=== PATIENT | female | born 1955 | race Caucasian/White ===

== ENCOUNTER → 2016-08-18 | Outpatient (CLI) | payer MEDICAID ==
[2016-08-18 12:22] LABS: Anisocytosis Slight; CH 24.4; CHCM 31.7; HCT 38.4 % (34.0-46.0); HGB 11.7 gm/dL (11.4-16.0); Hypochromasia Slight; MCH 23.6 pg (25.0-35.0); MCHC 30.5 g/dL (31.0-37.0); MCV 77.5 fL (80.0-100.0); Mean Platelet Volume 7.3; Microcytosis Slight; RBC 4.96 m/uL (3.80-5.40); RDW 16.3 % (11.5-15.5); WBC 9.3 k/uL (3.8-10.6)
[2016-08-18 12:27] LABS: Appearance,Urine Clear (Clear); Bilirubin,Urine Negative (Negative); Glucose,Urine (UA) 3+ (Negative); Ketones,Urine Negative (Negative); Leukocyte Esterase,Urine Moderate (Negative); Mucus,Urine Rare /hpf; Nitrite,Urine Negative (Negative); PH, Urine 6.5 (5.0-8.0); Particle Count 1249; Protein,Urine Negative (Negative); Specific Gravity,Urine 1.006 (1.001-1.035); Squamous Epithelial Cell,Urine 3 /hpf (0-4); UA Billing (MACRO vs. MICRO) MICRO; Urobilinogen,Urine <2.0 mg/dL (<2.0); WBC,Urine 14 /hpf (0-5)
[2016-08-18 12:34] LABS: ALT 37 U/L (9-52); AST 25 U/L (14-36); Alkaline Phosphatase 87 U/L (38-126); Anion Gap 12 mmol/L; Blood Urea Nitrogen 12 mg/dL (7-17); Calcium 10.4 mg/dL (8.4-10.2); Carbon Dioxide 29 mmol/L (22-30); Chloride 103 mmol/L (98-107); Cholesterol 151 mg/dL (<200); Glucose 59 mg/dL (74-99); HDL Cholesterol 51 mg/dL (40-60); Non-African American GFR(MDRD) >60 (>60 ml/min/1.73 sqM); Sodium 144 mmol/L (137-145); Total Bilirubin 0.4 mg/dL (0.2-1.3); Total Protein 7.2 g/dL (6.3-8.2); Triglycerides 133 mg/dL (<150)
[2016-08-18 19:11] LABS: Hemoglobin A1C 8.5 % (4.2-6.1)
== END | disposition home or self-care (01) ==
LOC: LABT 10:44
PROVIDERS: ATTEND Internal Medicine Interventional Cardiology
DX: Z00.00 Encounter for general adult medical examination without abnormal findings (principal); E11.65 Type 2 diabetes mellitus with hyperglycemia; E03.9 Hypothyroidism, unspecified; E78.2 Mixed hyperlipidemia
CPT/HCPCS: 36415; 80053; 80061; 81001; 82043; 82306; 83036; 84439; 84443; 84481; 85027; 87086

== ENCOUNTER → 2016-08-25 | Outpatient (CLI) | payer MEDICAID ==
[2016-08-25 09:55] LABS: Calcium 10.6 mg/dL (8.4-10.2)
[2016-08-25 10:03] LABS: % Iron Saturation 9.1 % (20-50)
== END | disposition home or self-care (01) ==
LOC: LABWHC1 09:17
PROVIDERS: ATTEND Family Medicine
DX: R89.9 Unspecified abnormal finding in specimens from other organs, systems and tissues (principal)
CPT/HCPCS: 36415; 82310; 82728; 83540; 83550

== ENCOUNTER → 2016-08-31 | Outpatient (CLI) | payer MEDICAID ==
[2016-08-31 16:19] LABS: Anisocytosis Slight; CH 24.6; CHCM 31.1; HCT 39.2 % (34.0-46.0); HGB 12.1 gm/dL (11.4-16.0); Hypochromasia Moderate; MCH 24.6 pg (25.0-35.0); MCHC 30.9 g/dL (31.0-37.0); MCV 79.4 fL (80.0-100.0); Mean Platelet Volume 6.9; Microcytosis Slight; RBC 4.94 m/uL (3.80-5.40); RDW 16.4 % (11.5-15.5); WBC 8.3 k/uL (3.8-10.6)
[2016-08-31 16:27] LABS: Ionized Calcium 5.5 mg/dL (4.5-5.3)
== END | disposition home or self-care (01) ==
LOC: LABWHC1 15:41
PROVIDERS: ATTEND Family Medicine
DX: R79.9 Abnormal finding of blood chemistry, unspecified (principal)
CPT/HCPCS: 36415; 82310; 82330; 83970; 85027

== ENCOUNTER → 2016-11-16 | Outpatient (CLI) | payer MEDICAID ==
--- NOTE | 2016-11-19 10:21 | MM ---
Reason for exam: screening (asymptomatic). Last mammogram was performed 1 year and 1 month ago. History: Patient is postmenopausal and history of other cancer. Physical Findings: A clinical breast exam by your physician is recommended on an annual basis and results should be correlated with mammographic findings. MG Screening Mammo w CAD Bilateral CC and MLO view(s) were taken. Prior study comparison: November 01, 2015, bilateral MG 3d screening mammo w/cad. September 24, 2014, bilateral MG screening mammo w CAD. The breast tissue is heterogeneously dense. This may lower the sensitivity of mammography. Finding: There are vascular calcifications. There is no discrete abnormality. No significant changes in finding since November 01, 2015 and September 24, 2014. ASSESSMENT: Benign, BI-RAD 2 RECOMMENDATION: Routine screening mammogram of both breasts in 1 year.
== END | disposition home or self-care (01) ==
LOC: RADMAMWWP 15:15
PROVIDERS: ATTEND Family Medicine
DX: Z12.31 Encounter for screening mammogram for malignant neoplasm of breast (principal)

== ENCOUNTER → 2016-12-04 | Outpatient (CLI) | payer MEDICAID ==
[2016-12-04 16:01] LABS: Basophils # (A) 0.1 k/uL (0-0.2); Basophils % (A) 1 %; CH 24.7; CHCM 31.2; Eosinophils # (A) 0.2 k/uL (0-0.7); Eosinophils % (A) 2 %; HCT 40.2 % (34.0-46.0); HDW 3.11; HGB 12.4 gm/dL (11.4-16.0); Hypochromasia Moderate; Luc # (Auto) 0.24; Luc % (Auto) 2; Lymphocytes % (A) 18 %; MCH 24.5 pg (25.0-35.0); MCHC 30.8 g/dL (31.0-37.0); MCV 79.5 fL (80.0-100.0); Mean Platelet Volume 6.6; Monocytes # (A) 0.5 k/uL (0-1.0); Monocytes % (A) 4 %; Neutrophils # (A) 8.3 k/uL (1.3-7.7); Neutrophils % (A) 74 %; RBC 5.06 m/uL (3.80-5.40); RDW 15.9 % (11.5-15.5); WBC 11.2 k/uL (3.8-10.6); WBC (Perox) 11.68
[2016-12-04 16:13] LABS: ALT 35 U/L (9-52); AST 23 U/L (14-36); Anion Gap 15 mmol/L; Blood Urea Nitrogen 14 mg/dL (7-17); Calcium 9.9 mg/dL (8.4-10.2); Carbon Dioxide 24 mmol/L (22-30); Chloride 102 mmol/L (98-107); Glucose 132 mg/dL (74-99); Iron 40 ug/dL (37-170); Non-African American GFR(MDRD) >60 (>60 ml/min/1.73 sqM); Potassium 4.8 mmol/L (3.5-5.1); Sodium 141 mmol/L (137-145)
[2016-12-04 16:22] LABS: % Iron Saturation 8.7 % (20-50); Total Iron Binding Capacity 460 ug/dL (265-497)
== END | disposition home or self-care (01) ==
LOC: LABWHC1 15:34
PROVIDERS: ATTEND Internal Medicine Endocrinology, Diabetes & Metabolism
DX: E03.8 Other specified hypothyroidism (principal); I10 Essential (primary) hypertension; R71.8 Other abnormality of red blood cells
CPT/HCPCS: 36415; 80048; 82728; 83540; 83550; 84443; 84450; 84460; 85025

== ENCOUNTER → 2017-04-23 | Outpatient (CLI) | payer MEDICAID ==
[2017-04-23 10:58] LABS: EKG EKG PERFORMED
[2017-04-23 11:20] LABS: Basophils # (A) 0.1 k/uL (0-0.2); Basophils % (A) 1 %; CH 25.5; CHCM 31.1; Eosinophils # (A) 0.2 k/uL (0-0.7); Eosinophils % (A) 2 %; HCT 42.6 % (34.0-46.0); HDW 3.22; HGB 13.5 gm/dL (11.4-16.0); Hypochromasia Moderate; Luc # (Auto) 0.28; Luc % (Auto) 3; Lymphocytes # (A) 2.4 k/uL (1.0-4.8); Lymphocytes % (A) 28 %; MCH 26.1 pg (25.0-35.0); MCHC 31.7 g/dL (31.0-37.0); MCV 82.6 fL (80.0-100.0); Mean Platelet Volume 6.4; Monocytes # (A) 0.5 k/uL (0-1.0); Monocytes % (A) 6 %; Neutrophils # (A) 5.1 k/uL (1.3-7.7); Neutrophils % (A) 60 %; RBC 5.16 m/uL (3.80-5.40); WBC 8.6 k/uL (3.8-10.6); WBC (Perox) 8.66
[2017-04-23 11:37] LABS: Anion Gap 13 mmol/L; Carbon Dioxide 25 mmol/L (22-30); Chloride 101 mmol/L (98-107); Potassium 5.3 mmol/L (3.5-5.1); Sodium 139 mmol/L (137-145)
== END | disposition home or self-care (01) ==
LOC: LABPAT 10:46
PROVIDERS: ATTEND Orthopaedic Surgery
DX: Z01.810 Encounter for preprocedural cardiovascular examination (principal); Z01.812 Encounter for preprocedural laboratory examination; M65.341 Trigger finger, right ring finger
CPT/HCPCS: 36415; 80051; 85025; 93005

== ENCOUNTER 2017-05-02 11:23 | Day surgery (SDC) | payer MEDICAID ==
[2017-04-26 11:21] VITALS: BMI 33.3
--- NOTE | 2017-05-01 14:43 | HP ---
HISTORY AND PHYSICAL DATE OF SERVICE: 05/02/2017 Sabrina Sterling is a 61-year-old patient seen with symptomatic right ring finger trigger finger. We discussed options. She elected to proceed with release A1 devin, consent was obtained. PAST MEDICAL HISTORY: Hyperlipidemia, hypertension, insulin-dependent diabetes, hypothyroidism, asthma. PAST SURGICAL HISTORY: Thyroidectomy, spine surgery, hysterectomy. DAILY MEDICATIONS: Aspirin, atorvastatin, Celexa, Lantus, insulin, levothyroxine, metformin, Lopid, metoprolol, Neurontin, Prilosec. ALLERGIES: CECLOR, SULFA. SOCIAL HISTORY: Patient denies current tobacco use. Physical evaluation right hand, tenderness noted along the A1 devin area. There is clicking, catching with range of motion of the right ring finger. She has good range of motion of the wrist. Distal neurovascular exam is intact. Right hand radiographs were were obtained and revealed no osseous abnormality. IMPRESSION: Symptomatic right ring finger trigger finger. PLAN: Release A1 devin, right ring finger. MMODL / IJN: [id number] /
[~2017-05-02 11:23] MED LIST: DEXAMETHASONE SOD PHOSPHATE 10 MG/ML 1 ML VIAL IV ONE; HYDROmorphone 0.5 MG/0.5 ML SYRINGE IVP PRN; LACTATED RINGERS 1,000 ML IV SCH; ONDANSETRON 4 MG/2 ML VIAL IVP ONE; Pre Op ABX Message 1 EACH MISC MISCELLANE ONE
[2017-05-02 12:28] LABS: Glucose,Whole Blood 112 mg/dL (75-99)
[2017-05-02] MEDS ORDERED: LIDOCAINE 1% 20 ML VIAL (10MG/ML) FOR IV START INTRADERMA ONE (12:32)
[2017-05-02 12:34] VITALS: RESP 16; TEMP 97.3
[2017-05-02] MEDS ORDERED: CLINDAMYCIN 600 MG in DEXTROSE 5% IN WATER 50 ML IVPB STA ×2 (13:01)
[2017-05-02] MEDS ORDERED: PROPOFOL 10 MG/ML 20 ML VIAL IV ONE (13:53)
[2017-05-02] MEDS ORDERED: MIDAZOLAM 2 MG/2 ML VIAL ONE (13:53)
[2017-05-02] MEDS ORDERED: fentaNYL (PF) 50 MCG/ML 2 ML AMP ONE (13:53)
[2017-05-02] MEDS ORDERED: LIDOCAINE 1% INJ 10MG/ML (20 ML MDV) ONE (13:53)
[2017-05-02] MEDS ORDERED: BUPIVACAINE (PF) 0.25% 30 ML VIAL SQ ONE ×2 (13:59→14:04)
--- NOTE | 2017-05-02 14:25 | P.OP ---
Date of Procedure: 05/02/17 Preoperative Diagnosis: Right ring finger trigger finger Postoperative Diagnosis: Same Procedure(s) Performed: Release A1 devin right ring finger Anesthesia: MAC, local Surgeon: Ky Oliver Estimated Blood Loss (ml): 1 Pathology: none sent Condition: stable Disposition: PACU Indications for Procedure: 61-year-old patient seen with symptomatic right ring finger trigger finger. After we discussed options, she elected to proceed with release A1 devin. Consent was obtained. Operative Findings: see description of procedure Description of Procedure: The patient was taken to the operative suite and having received preoperative IV antibiotics. Patient underwent IV sedation by the department of anesthesia. A well-padded tourniquet placed proximal right upper extremity. The right upper extremity was prepped and draped in the normal sterile orthopedic fashion. The proposed incision site was infiltrated with 7 mL quarter percent plain Marcaine. Once sufficient local analgesia was noted the extremity was elevated and tourniquet insufflated to 250. I made a 1 cm incision based over the area of the A1 devin right ring finger. I dissected down to the A1 devin. I identified the A1 devin. I incised the A1 devin. I made sure was completely released with blunt tenotomies. There was good excursion of the tendon with no impingement. There was adequate hemostasis. The incision was approximate nylon suture. Sterile dressings were applied followed by loose web roll and Matty bandage. The tourniquet was released noting immediate capillary refill of all digits. The patient was then transferred to recovery stable condition.
[2017-05-02 14:33] LABS: Glucose,Whole Blood 141 mg/dL (75-99)
[2017-05-02 14:58] VITALS: BP 122/76; PULSE 83
== END 2017-05-02 15:25 | disposition home or self-care (01) ==
LOC: OR 11:23
PROVIDERS: ATTEND Orthopaedic Surgery
DX: M65.341 Trigger finger, right ring finger (principal); E78.5 Hyperlipidemia, unspecified; I10 Essential (primary) hypertension; E11.9 Type 2 diabetes mellitus without complications; E03.9 Hypothyroidism, unspecified; J45.909 Unspecified asthma, uncomplicated; K21.9 Gastro-esophageal reflux disease without esophagitis; Z79.84 Long term (current) use of oral hypoglycemic drugs; Z79.82 Long term (current) use of aspirin; Z79.4 Long term (current) use of insulin; Z79.891 Long term (current) use of opiate analgesic; Z79.899 Other long term (current) drug therapy; Z88.1 Allergy status to other antibiotic agents; Z88.2 Allergy status to sulfonamides
CPT/HCPCS: 84132; 26055; J2250; J1100; J2405; J2001; J3010; J2704

== ENCOUNTER 2017-08-18 17:19 | Emergency (ER) | payer MEDICAID, OTHER ==
[2017-08-18 17:23] VITALS: RESP 18
[2017-08-18] MEDS ORDERED: SODIUM CHLORIDE 0.9% 1,000 ML IV STA (17:39)
[2017-08-18] MEDS ORDERED: RX INFO: IV CONTRAST WAS GIVEN 1 EACH MISC MISCELLANE PRN (17:39)
[2017-08-18] MEDS ORDERED: ONDANSETRON 4 MG/2 ML VIAL IVP STA (17:39)
[2017-08-18] MEDS ORDERED: MORPHINE SULFATE 2 MG/ML SYRINGE IVP ONE (17:41)
[2017-08-18] MEDS ORDERED: MORPHINE SULFATE 4 MG/ML SYRINGE IVP ONE (18:00)
[2017-08-18 18:28] LABS: Basophils # (A) 0.1 k/uL (0-0.2); Basophils % (A) 1 %; Eosinophils # (A) 0.2 k/uL (0-0.7); Eosinophils % (A) 2 %; HCT 42.5 % (34.0-46.0); HGB 13.7 gm/dL (11.4-16.0); Lymphocytes # (A) 1.6 k/uL (1.0-4.8); Lymphocytes % (A) 15 %; MCH 25.9 pg (25.0-35.0); MCHC 32.4 g/dL (31.0-37.0); MCV 80.1 fL (80.0-100.0); Mean Platelet Volume 6.5; Monocytes # (A) 0.5 k/uL (0-1.0); Monocytes % (A) 5 %; Neutrophils # (A) 7.9 k/uL (1.3-7.7); Neutrophils % (A) 76 %; Platelet Count 398 k/uL (150-450); RDW 15.1 % (11.5-15.5); WBC 10.5 k/uL (3.8-10.6)
[2017-08-18 18:32] LABS: Prothrombin Time 10.2 sec (9.0-12.0)
[2017-08-18 18:33] LABS: ALT 30 U/L (9-52); AST 26 U/L (14-36); Albumin 4.3 g/dL (3.5-5.0); Alcohol <10 mg/dL; Alkaline Phosphatase 110 U/L (38-126); Anion Gap 15 mmol/L; Blood Urea Nitrogen 14 mg/dL (7-17); Calcium 10.1 mg/dL (8.4-10.2); Carbon Dioxide 26 mmol/L (22-30); Chloride 100 mmol/L (98-107); Glucose 191 mg/dL (74-99); Potassium 4.5 mmol/L (3.5-5.1); Sodium 141 mmol/L (137-145); Total Bilirubin 0.5 mg/dL (0.2-1.3); Total Protein 7.1 g/dL (6.3-8.2)
[2017-08-18 18:37] LABS: Creatine Kinase 31 U/L (30-135)
[2017-08-18 18:38] LABS: Partial Thromboplastin Time 19.8 sec (22.0-30.0)
[2017-08-18 18:49] LABS: Creatine Kinase MB 0.3 ng/mL (0.0-2.4); Troponin I <0.012 ng/mL (0.000-0.034)
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
--- NOTE | 2017-08-18 19:57 | XR ---
EXAMINATION TYPE: XR chest 1V portable DATE OF EXAM: 08/18/2017 COMPARISON: 11/09/2015 HISTORY: Pain TECHNIQUE: Single frontal view of the chest is obtained. FINDINGS: There is no heart failure nor confluent pneumonic infiltrate. Costophrenic angles are jennifer r. There are chest leads. IMPRESSION: No active cardiopulmonary disease. No adverse change compared to old exam.
--- NOTE | 2017-08-18 19:58 | XR ---
EXAMINATION TYPE: XR pelvis AP view DATE OF EXAM: 08/18/2017 COMPARISON: NONE HISTORY: Pain TECHNIQUE: Single view FINDINGS: There is contrast in the urinary bladder. Pelvic ring appears intact. There is spurring of the acetabula. The level fusion surgery is noted in the lumbar spine. Sacroiliac joints are intact. IMPRESSION: No acute abnormality of the pelvis.
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
[2017-08-18 20:50] VITALS: BP 146/92; PULSE 85; TEMP 99.1
[2017-08-18 21:18] LABS: Amphetamine Screen,Urine Not Detected (NotDetected); Barbiturate Screen,Urine Not Detected (NotDetected); Benzodiazepines Screen,Urine Not Detected (NotDetected); Cocaine Screen,Urine Not Detected (NotDetected); Methadone Screen, Urine Not Detected (NotDetected); Opiate Screen,Urine Detected (NotDetected); Oxycodone Screen, Urine Not Detected (NotDetected); Phencyclidine Screen,Urine Not Detected (NotDetected); Tricyclic Antidepressant,Urine Detected (NotDetected); Urn Cannabinoid Scrn Not Detected (NotDetected)
[2017-08-18 21:23] LABS: Appearance,Urine Cloudy (Clear); Bilirubin,Urine Negative (Negative); Blood,Urine Moderate (Negative); Color,Urine Yellow; Glucose,Urine (UA) 4+ (Negative); Ketones,Urine Negative (Negative); Leukocyte Esterase,Urine Large (Negative); Nitrite,Urine Negative (Negative); PH, Urine 7.5 (5.0-8.0); Protein,Urine Trace (Negative); RBC,Urine >182 /hpf (0-5); Squamous Epithelial Cell,Urine 16 /hpf (0-4); Urobilinogen,Urine <2.0 mg/dL (<2.0); WBC,Urine >182 /hpf (0-5)
[2017-08-18 21:43] LABS: Specific Gravity,Urine >1.050 (1.001-1.035)
== END 2017-08-18 20:57 | disposition home or self-care (01) ==
LOC: EC 17:19
DX: M54.5 Low back pain (principal); M54.6 Pain in thoracic spine; R51 Headache; M54.2 Cervicalgia; R07.9 Chest pain, unspecified; R10.9 Unspecified abdominal pain; E11.9 Type 2 diabetes mellitus without complications; K21.9 Gastro-esophageal reflux disease without esophagitis; E78.5 Hyperlipidemia, unspecified; I10 Essential (primary) hypertension; K58.9 Irritable bowel syndrome, unspecified; I25.10 Atherosclerotic heart disease of native coronary artery without angina pectoris; F32.9 Major depressive disorder, single episode, unspecified; Z79.4 Long term (current) use of insulin; Z79.82 Long term (current) use of aspirin; Z79.899 Other long term (current) drug therapy; Z88.2 Allergy status to sulfonamides; Z88.1 Allergy status to other antibiotic agents; V47.5XXA Car driver injured in collision with fixed or stationary object in traffic accident, initial encounter; Y92.410 Unspecified street and highway as the place of occurrence of the external cause
CPT/HCPCS: 36415; 93005; 86900; 86901; 80053; 82550; 82553; 84484; 85025; 85610; 85730; 86850; 81001; 80306; 80320; 72170; 71045; 72125; 70450; 71260; 74177; 99285; 96374; 96375; 96361 ×3; J2270; J2405; Q9967

== ENCOUNTER → 2017-09-02 | Outpatient (CLI) | payer OTHER ==
--- NOTE | 2017-09-02 12:15 | US ---
EXAMINATION TYPE: US kidneys/renal and bladder DATE OF EXAM: 09/02/2017 COMPARISON: CT 08/18/2017 CLINICAL HISTORY: 61-year-old female R31.21 Microscopic hematuria. Technique: Multiple sonographic images of the kidneys and bladder are obtained. FINDINGS: DIP BRAZIER NOTES: Large body habitus. Right Kidney: 12.1 x 5.0 x 6.0 cm without hydronephrosis. No discrete lesion is identified. The 1.2 cm exophytic cortical lesion posteriorly is not identified by ultrasound. Left Kidney: 11.2 x 5.5 x 5.0 cm with mild pelvicaliectasis. Multiple cysts are demonstrated, largest measuring 2.6 cm in the lower pole and 1.9 cm at the mid to lower pole. An upper pole cyst measures 1.6 cm. No suspicious lesion seen. The lower pole is partially obscured by bowel gas shadowing. No gross abnormality of the bladder. Both ureteral jets are visualized. IMPRESSION: 1. Note limited sensitivity of ultrasound for small renal lesions. The exophytic cortical lesion post erior right kidney seen on 08/18/2017 CT is not seen by ultrasound. A cyst is suspected. 2. Multiple benign cysts in the left kidney, largest measuring 2.6 cm. No suspicious lesion is seen t bri bowel gas shadowing obscures a portion of the lower pole. 3. Mild left-sided pelvicaliectasis probably transient. Follow-up as indicated.
== END | disposition home or self-care (01) ==
LOC: RADUSWWP 10:09
PROVIDERS: ATTEND Family Medicine
DX: N28.1 Cyst of kidney, acquired (principal); N28.89 Other specified disorders of kidney and ureter
CPT/HCPCS: 76770

== ENCOUNTER → 2017-10-31 | Outpatient (CLI) | payer OTHER | END | disposition home or self-care (01) | LOC: LABWHC1 15:52 | PROVIDERS: ATTEND Physical Medicine & Rehabilitation | DX: M51.17 Intervertebral disc disorders with radiculopathy, lumbosacral region (principal); M50.120 Mid-cervical disc disorder, unspecified level; M47.812 Spondylosis without myelopathy or radiculopathy, cervical region; M47.817 Spondylosis without myelopathy or radiculopathy, lumbosacral region; S13.4XXA Sprain of ligaments of cervical spine, initial encounter; M25.78 Osteophyte, vertebrae; M70.61 Trochanteric bursitis, right hip; R20.2 Paresthesia of skin; G89.11 Acute pain due to trauma; M54.5 Low back pain; Z98.1 Arthrodesis status | CPT/HCPCS: 36415; 82565 ==

== ENCOUNTER → 2017-11-01 | Outpatient (CLI) | payer OTHER ==
--- NOTE | 2017-11-01 10:48 | MR ---
EXAMINATION TYPE: MR cspine/lspine wo/w con DATE OF EXAM: 11/01/2017 COMPARISON: NONE HISTORY: Neck pain low back pain CONTRAST: Performed utilizing 8.5 mL intravenous Gadavist gadolinium contrast. TECHNIQUE: Multiplanar multiecho imaging on a 3.0 Sandra magnet is performed through the cervical spin e. FINDINGS: The craniovertebral junction is normal. Vertebral body alignment is normal. Postsurgical anterior fusion is evident C5-C6 and C7. C7-T1: Mild disc bulge is present with anterior thecal sac contact. No AP spinal canal stenosis is p resent. Neural foramen are patent. C6-7: Minimal residual endplate spurring has mild anterior thecal sac compression. No AP spinal canal stenosis is present. No cord contact is evident. Neural foramen are patent.. C5-6: There is a small central protrusion with mild anterior thecal sac compression. No AP spinal can al stenosis or cord contact is evident. Right foramen has mild narrowing.. C4-5: There is a large right paracentral disc bulge with moderate anterior thecal sac compression. Th is has cord contact. Mild cord deformity may be present. Borderline spinal canal stenosis at 0.8 cm i s present. Right foramen is moderately narrowed due to uncovertebral joint hypertrophy. Milder forami nal narrowing is present on the left.. C3-4: Broad mild right paracentral endplate changes are present. This may have some associated disc m aterial with mild anterior thecal sac compression. No cord contact is evident. No spinal canal stenos is present. Moderate right foraminal narrowing is present.. C2-3: There is a tiny central protrusion with mild to moderate anterior thecal sac compression. This comes in close approximation with the spinal cord. Cord deformity is not identified. Neural foramen a re patent.. No suspicious enhancement is evident. IMPRESSIONS: 1. Moderately large right paracentral disc herniation C4-5 with moderate anterior thecal sac compress ion. Cord contact and mild cord deformity may be present. 2. Postsurgical changes with cervical fusion C5 5 through C7. 3. Foraminal narrowing due to uncovertebral joint hypertrophy discussed above. 4. Tiny central protrusion C2-3 and broad mild right paracentral endplate changes with associated di sc material at C3-4 with mild anterior thecal sac compression. EXAMINATION TYPE: MR rangeline/andi wo/w con DATE OF EXAM: 11/01/2017 COMPARISON: NONE HISTORY: Low back pain history of surgery CONTRAST: 8.5 mL intravenous Gadavist. TECHNIQUE: Multiplanar, multisequence images of the lumbar spine were acquired. FINDINGS: Cord appears to terminate at approximately L2. The exact level is somewhat difficult to vi sualize due to the beam hardening artifact present from pedicle screws present L2-S1. Vertebral body alignment appears appropriate. Disc heights appear preserved. Disc desiccation is present. L5-S1: No significant disc bulge or disc herniation. No spinal canal stenosis. No foraminal stenosi s. Facet hypertrophy is present. Susceptibility artifact has mild limitation at this level.. L4-L5: This level is extremely limited due to susceptibility artifact with limited visualization on t he T2-weighted sequences. T1-weighted sequences are nondiagnostic. No obvious abnormality is evident. L3-L4: This level is extremely limited due to susceptibility artifact and is nondiagnostic on T1-weig hted sequences. Suspected facet hypertrophy is present with posterior lateral thecal sac compression on the T2-weighted sequences. Obvious stenosis is not evident. No obvious abnormality is identified. L2-L3: There is moderate limited visualization due to susceptibility artifact. No obvious stenosis is evident. No significant disc bulge is evident. Neural foramen are somewhat limited but appear patent . L1-L2: This level is somewhat limited due to susceptibility artifact. No significant disc bulge or di sc herniation. No spinal canal stenosis. No foraminal stenosis. T12-L1: No significant disc bulge or disc herniation. No spinal canal stenosis. No foraminal stenos is. Facets appear unremarkable.. No abnormal enhancement is evident. T1 postcontrast images are very limited due to susceptibility art ifact. IMPRESSION: 1. Very limited examination due to susceptibility artifact from pedicle screws and prior surgery. 2. To the degree of visualization, no obvious abnormality is evident. 3. Some facet degenerative changes are noted.
== END ==
LOC: RADMRIMAIN 08:32
PROVIDERS: ATTEND Physical Medicine & Rehabilitation
DX: M50.01 Cervical disc disorder with myelopathy, high cervical region (principal); Z98.1 Arthrodesis status; M48.02 Spinal stenosis, cervical region
CPT/HCPCS: 72156; 72158; A9581

== ENCOUNTER 2017-11-12 08:58 | Day surgery (SDC) | payer OTHER ==
[2017-11-08 15:46] VITALS: BMI 33.3
[~2017-11-12 08:58] MED LIST changes: -DEXAMETHASONE SOD PHOSPHATE 10 MG/ML 1 ML VIAL IV ONE; -HYDROmorphone 0.5 MG/0.5 ML SYRINGE IVP PRN; +LIDOCAINE 1% 20 ML VIAL (10MG/ML) FOR IV START INTRADERMA PRN; -ONDANSETRON 4 MG/2 ML VIAL IVP ONE; -Pre Op ABX Message 1 EACH MISC MISCELLANE ONE
[2017-11-12] MEDS: CYCLOPENTOLATE 1% OPHTH SOLN 2 ML BTL OP ONE ×3 (10:05→10:23)
[2017-11-12] MEDS: FLURBIPROFEN 0.03% OPHTH DROPS 2.5 ML BTL OP ONE ×3 (10:08→10:26)
[2017-11-12 10:11] VITALS: RESP 18; TEMP 97.2
[2017-11-12] MEDS: PHENYLEPHRINE 10% OPHTH DROPS 5 ML BTL OP ONE ×3 (10:11→10:29)
[2017-11-12 10:36] LABS: Glucose,Whole Blood 149 mg/dL (75-99)
[2017-11-12] MEDS ORDERED: BALANCED SALT IRRIG SOLN COMB2 15 ML IRRIG.SOLN IRRIGATION ONE (10:50)
[2017-11-12] MEDS ORDERED: HYALURONATE SODIUM INTRAOCULAR 1 EACH SYRINGE (10MG/ML) INTRAOCULA ONE (10:51)
[2017-11-12] MEDS ORDERED: PROPOFOL 10 MG/ML 20 ML VIAL IV ONE (10:53)
[2017-11-12] MEDS ORDERED: LIDOCAINE 1% INJ 10MG/ML (20 ML MDV) ONE (10:53)
[2017-11-12] MEDS ORDERED: EPINEPHrine (PF) 0.5 ML in BALANCED SALT IRRIG SOLN COMB2 500 ML IRRIGATION ONE (10:56)
--- NOTE | 2017-11-12 11:13 | P.OP ---
Date of Procedure: 11/12/17 Procedure(s) Performed: PREOPERATIVE DIAGNOSIS: Cataract, right eye. POSTOPERATIVE DIAGNOSIS: Cataract, right eye. OPERATION: Phacoemulsification cataract, right eye. DESCRIPTION OF PROCEDURE: The patient was taken to the preoperative holding area. Intravenous Propofol was given so as to bring about adequate sedation. The following mixture was given for local anesthesia: 5 mL of 2% lidocaine, 5 mL of 0.75% Marcaine, and 1 mL of Wydase. Approximately 4 mL was injected in the retrobulbar space of the surgical eye. Additional 1 mL was then directed to the temporal area of the surgical eye. This was performed to allow adequate neurological block of the facial muscles. The patient was revived and then taken into the operative room. The patient was prepped and draped in the usual sterile manner for the operative eye. A lid speculum was put into position. The conjunctiva was resected back from the limbus in the 12 o'clock position. Bleeding was controlled with electrocautery. A #69 blade was then used and a half-thickness scleral incision approximately 1-mm posterior to the limbus was made on bare sclera. This was shelved in the clear cornea using a crescent knife. Next a 15-degree blade was used to make a stab incision at the 3 o' clock position at the corneolimbal interface. Keratome blade was then used and the superior wound was extended into the anterior chamber. Viscoelastic was injected into the anterior chamber and to maintain its form. Next, a cystotome was used and a continuous anterior capsulotomy was made without difficulty. Hydrodissection using a blunt cannula and BSS was performed. Phaco probe was then employed and a groove extending from 12 to 6 o'clock in the lens was created. A Martinez wand was used through the stab incision so as to perform a divide and conquer technique. Next an irrigation aspiration probe was utilized and any residual cortex was removed from the eye. Again, viscoelastic was injected into the anterior chamber. An Colton posterior chamber lens implant was placed in the cartridge and injected into the anterior chamber without difficulty. The [employer] System[employer] hook was utilized to spin the lens into position and this was again performed without any difficulty. The irrigation and aspiration probe was again employed and any residual viscoelastic was removed from the eye. Then BSS was injected into the limbal stab incision and the anterior chamber re-inflated. The conjunctiva was reapproximated using electrocautery. One drop of 0.25% Timoptic was placed over the corneal along with TobraDex ophthalmic ointment. Two sterile patches and a Bustos eye shield were taped into position. The patient was transported to the recovery room in stable condition. Pathology: none sent Condition: stable Disposition: same day
[2017-11-12 11:24] LABS: Glucose,Whole Blood 116 mg/dL (75-99)
[2017-11-12 11:41] VITALS: BP 142/84; PULSE 68
[2017-11-12] MEDS ORDERED: TIMOLOL 0.5% OPHTH DROPS 5 ML BTL OP ONE (23:00)
[2017-11-12] MEDS ORDERED: GENTAMICIN/PREDNISOL AC OPHTH OINT 3.5GM OPHTHALMIC ONE (23:00)
[2017-11-12] MEDS ORDERED: BUPIVACAINE (PF) 0.75% 5 ML, HYALURONIDASE, HUMAN RECOMB 150 UNIT, LIDOCAINE 2% (PF) 10... MISCELLANE ONE ×3 (23:00)
== END 2017-11-12 11:58 | disposition home or self-care (01) ==
LOC: OR 08:58
PROVIDERS: ATTEND Ophthalmology
DX: H25.11 Age-related nuclear cataract, right eye (principal); E11.9 Type 2 diabetes mellitus without complications; I11.9 Hypertensive heart disease without heart failure; I25.2 Old myocardial infarction; E78.5 Hyperlipidemia, unspecified; I25.10 Atherosclerotic heart disease of native coronary artery without angina pectoris; J45.909 Unspecified asthma, uncomplicated; E89.0 Postprocedural hypothyroidism; K21.9 Gastro-esophageal reflux disease without esophagitis; Z95.5 Presence of coronary angioplasty implant and graft; Z88.1 Allergy status to other antibiotic agents; Z88.2 Allergy status to sulfonamides; Z79.82 Long term (current) use of aspirin; Z79.890 Hormone replacement therapy; Z79.4 Long term (current) use of insulin; Z79.891 Long term (current) use of opiate analgesic; Z79.899 Other long term (current) drug therapy
CPT/HCPCS: 66984; V2632; J3470; J2001 ×2; J0171; J2704

== ENCOUNTER → 2017-11-20 | Outpatient (CLI) | payer OTHER ==
[2017-11-20 13:39] LABS: HCT 38.6 % (34.0-46.0); HGB 12.9 gm/dL (11.4-16.0); MCH 26.4 pg (25.0-35.0); MCHC 33.3 g/dL (31.0-37.0); MCV 79.1 fL (80.0-100.0); Mean Platelet Volume 6.3; Platelet Count 377 k/uL (150-450); Poikilocytosis Slight; RBC 4.88 m/uL (3.80-5.40); RDW 15.1 % (11.5-15.5); WBC 9.3 k/uL (3.8-10.6)
[2017-11-20 13:40] LABS: Appearance,Urine Cloudy (Clear); Bilirubin,Urine Negative (Negative); Blood,Urine Negative (Negative); Color,Urine Yellow; Glucose,Urine (UA) Negative (Negative); Ketones,Urine Negative (Negative); Leukocyte Esterase,Urine Large (Negative); Mucus,Urine Rare /hpf; Nitrite,Urine Negative (Negative); PH, Urine 6.5 (5.0-8.0); Protein,Urine 1+ (Negative); RBC,Urine 1 /hpf (0-5); Specific Gravity,Urine 1.023 (1.001-1.035); Squamous Epithelial Cell,Urine 8 /hpf (0-4); WBC,Urine 5 /hpf (0-5)
[2017-11-20 13:51] LABS: ALT 22 U/L (9-52); AST 22 U/L (14-36); Albumin 4.2 g/dL (3.5-5.0); Alkaline Phosphatase 114 U/L (38-126); Anion Gap 15 mmol/L; Blood Urea Nitrogen 14 mg/dL (7-17); Calcium 9.3 mg/dL (8.4-10.2); Carbon Dioxide 26 mmol/L (22-30); Chloride 102 mmol/L (98-107); Cholesterol 156 mg/dL (<200); Glucose 119 mg/dL (74-99); HDL Cholesterol 40 mg/dL (40-60); LDL Cholesterol,Calculated 82 mg/dL (0-99); Potassium 4.2 mmol/L (3.5-5.1); Sodium 143 mmol/L (137-145); Total Bilirubin 0.4 mg/dL (0.2-1.3); Total Protein 6.6 g/dL (6.3-8.2); Triglycerides 169 mg/dL (<150)
[2017-11-20 14:07] LABS: T4, Free (Free Thyroxine) 1.43 ng/dL (0.78-2.19)
[2017-11-20 19:28] LABS: Vitamin D 25 Hydroxy 44.2 ng/mL (30.0-100.0)
[2017-11-20 21:20] LABS: Hepatitis C IgG Antibody Non-Reactive (Non-Reactive)
[2017-11-21 03:12] LABS: Hemoglobin A1C 9.3 % (4.0-6.0)
== END | disposition home or self-care (01) ==
LOC: LABWHC1 13:03
PROVIDERS: ATTEND Internal Medicine Endocrinology, Diabetes & Metabolism
DX: Z00.00 Encounter for general adult medical examination without abnormal findings (principal); E11.65 Type 2 diabetes mellitus with hyperglycemia; E03.8 Other specified hypothyroidism; Z13.9 Encounter for screening, unspecified
CPT/HCPCS: 36415; 80053; 80061; 81001; 82043; 82306; 82570; 83036; 84439; 84443; 85027; 86803

== ENCOUNTER → 2017-11-22 | Outpatient (CLI) | payer OTHER ==
--- NOTE | 2017-11-25 09:52 | MM ---
Reason for exam: screening (asymptomatic). Last mammogram was performed 1 year ago. History: Patient is postmenopausal and history of other cancer. Physical Findings: A clinical breast exam by your physician is recommended on an annual basis and results should be correlated with mammographic findings. MG 3D Screening Mammo W/Cad Bilateral CC and MLO view(s) were taken. Prior study comparison: November 16, 2016, bilateral MG screening mammo w CAD. November 01, 2015, bilateral MG 3d screening mammo w/cad. There are scattered fibroglandular densities. No significant changes when compared with prior studies. ASSESSMENT: Benign, BI-RAD 2 RECOMMENDATION: Routine screening mammogram of both breasts in 1 year.
== END | disposition home or self-care (01) ==
LOC: RADMAMWWP 12:47
PROVIDERS: ATTEND Family Medicine
DX: Z12.31 Encounter for screening mammogram for malignant neoplasm of breast (principal)
CPT/HCPCS: 77063; 77067

== ENCOUNTER → 2019-04-07 | Outpatient (CLI) | payer OTHER ==
--- NOTE | 2019-04-07 13:10 | US ---
EXAMINATION TYPE: US abdomen complete DATE OF EXAM: 04/07/2019 COMPARISON: CT abdomen pelvis dated 08/18/2017 CLINICAL HISTORY: R11.0 Nausea. Nausea, no surgeries, NPO EXAM MEASUREMENTS: Liver Length: 22.3 cm Gallbladder Wall: 0.2 cm CBD: 0.5 cm Spleen: 14.2 cm Right Kidney: 12.5 x 6.4 x 4.4 cm Left Kidney: 11.7 x 6.1 x 5.3 cm Limited visualization due to patient body habitus and overlying bowel Pancreas: Appears echogenic in appearance, limited visualization. Tail not visualized due to overly ing bowel gas. Liver: Increased attenuation, decreased visualization of vessels suggestive of fatty infiltrate. En larged in size. Coarse. Heterogenous. Gallbladder: wnl Evidence for sonographic Quintana's sign: neg CBD: wnl Spleen: Enlarged in size Right Kidney: Multiple cystic appearing lesions seen. Largest on lower lateral = 1.6 x 1.4 x 1.4 cm Left Kidney: Multiple cystic appearing lesions seen. Largest lower mid pole with possible septation = 3.2 x 4.0 x 3.1 cm Upper IVC: wnl Abd Aorta: Distal portions obscured by overlying bowel gas The intrahepatic portion of the IVC and proximal abdominal aorta are within normal limits. There is no evidence of cholelithiasis. Common bile duct is unremarkable. The visualized portions of the yeung creas are homogenous. The spleen is unremarkable. Kidneys are symmetric and free of hydronephrosis. IMPRESSION: 1. Splenomegaly. 2. Multiple benign-appearing bilateral renal cysts. 3. No sonographic evidence of cholelithiasis nor acute cholecystitis. The previously seen small ester liths on the prior CT of 08/18/2018 are not appreciated sonographically.
== END | disposition home or self-care (01) ==
LOC: RADUSWWP 11:48
PROVIDERS: ATTEND Family Medicine
DX: N28.1 Cyst of kidney, acquired (principal); R16.1 Splenomegaly, not elsewhere classified
CPT/HCPCS: 76700

== ENCOUNTER 2020-12-13 06:49 | Day surgery (SDC) | payer OTHER ==
[2020-12-08 11:18] VITALS: BMI 33.3
[~2020-12-13 06:49] MED LIST changes: +LIDOCAINE 1% (10MG/ML) FOR IV START INTRADERMA PRN; -LIDOCAINE 1% 20 ML VIAL (10MG/ML) FOR IV START INTRADERMA PRN
[2020-12-13 07:27] VITALS: TEMP 97
[2020-12-13 07:29] LABS: Glucose,Whole Blood 206 mg/dL (75-99)
[2020-12-13] MEDS ORDERED: LACTATED RINGERS 1,000 ML IV ONE (07:30)
[2020-12-13] MEDS ORDERED: LIDOCAINE 1% INJ 10MG/ML (20 ML MDV) ONE (08:01)
[2020-12-13] MEDS ORDERED: PROPOFOL 10 MG/ML 20 ML VIAL IV ONE (08:01)
--- NOTE | 2020-12-13 08:38 | P.PCN ---
Date of Procedure: 12/13/20 Description of Procedure: BRIEF HISTORY: Patient is a 65-year-old female presenting for outpatient colonoscopy or evaluation of positive Cologuard. Last colonoscopy 15 years ago. No change in bowel habits or abdominal pain reported. PROCEDURE PERFORMED: Colonoscopy with polypectomy and Endo Clip placement. PREOPERATIVE DIAGNOSIS: Positive Cologuard, last colonoscopy 15 years ago. ESTIMATED BLOOD LOSS: Minimal. IV sedation per Anesthesia. PROCEDURE: After informed consent was obtained, the patient, was brought into the endoscopy unit. IV sedation was administered by Anesthesia under continuous monitoring. Digital rectal examination was normal. Initially the Olympus CF-190 flexible video colonoscope was then inserted in the rectum, gradually advanced into the cecum without any difficulty. Careful examination was performed as the scope was gradually being withdrawn. Ileocecal valve and the appendiceal orifice were visualized and appeared normal. Prep was fair with liquid and solid stool throughout the colon. Mucosa of the cecum, ascending colon, transverse colon, descending colon, sigmoid colon, and rectum which was able to be visualized appeared normal. A sessile 4 mm hepatic flexure polyp was removed with cold snare polypectomy. A pedunculated 10 mm rectal polyp was removed with hot snare polypectomy with Endo Clip placement for hemostasis. Retroflexion was performed in the rectum and no lesions were seen. The patient tolerated the procedure wel l. IMPRESSION: Pedunculated rectal polyp removed with hot snare polypectomy with Endo Clip placement for hemostasis. Sessile hepatic flexure polyp removed with cold snare polypectomy. Fair prep. RECOMMENDATIONS: Findings of this examination were discussed with the patient and her family. Okay to resume diet. Okay to resume medication. Await pathology from polypectomies. Recommend repeat colonoscopy in 1 year given inadequate prep.
[2020-12-13 08:40] VITALS: RESP 16
[2020-12-13 08:46] LABS: Glucose,Whole Blood 156 mg/dL (75-99)
[2020-12-13 08:55] VITALS: BP 147/83; PULSE 60
== END 2020-12-13 09:11 | disposition home or self-care (01) ==
LOC: ORWHC2ENDO 06:49
PROVIDERS: ATTEND Internal Medicine
DX: K62.1 Rectal polyp (principal); I25.2 Old myocardial infarction; I10 Essential (primary) hypertension; F32.9 Major depressive disorder, single episode, unspecified; E78.5 Hyperlipidemia, unspecified; J45.909 Unspecified asthma, uncomplicated; E11.9 Type 2 diabetes mellitus without complications; Z85.850 Personal history of malignant neoplasm of thyroid; Z88.2 Allergy status to sulfonamides; K21.9 Gastro-esophageal reflux disease without esophagitis; Z79.899 Other long term (current) drug therapy; Z88.1 Allergy status to other antibiotic agents
CPT/HCPCS: 88305; 45385; J2001; J2704; 45382

== ENCOUNTER 2021-11-09 07:46 | Day surgery (SDC) | payer MEDICARE ==
[2021-11-09] MEDS ORDERED: diazePAM 5 MG TAB PO PRN (08:33)
== END 2021-11-09 09:05 | disposition home or self-care (01) ==
LOC: RADPROMAIN 07:46
PROVIDERS: ATTEND Nurse Practitioner Family
DX: M54.2 Cervicalgia (principal); Z53.9 Procedure and treatment not carried out, unspecified reason

== ENCOUNTER → 2023-03-28 | Outpatient (CLI) | payer MEDICARE ==
--- NOTE | 2023-03-28 16:00 | P.PAINPG ---
PQRS Measure Charge Sheet Comment: HISTORY OF PRESENT ILLNESS: 67 yr old female w at side as a referral from Dr Matta presents today w severe and chronic Head and Neck pain x 2 yr (since having Covid) secondary to occipital neuralgia, cervicogenic headache for evaluation. Pt states pain level is provoked at 9 /10 in intensity, constant, localized in the upper cervical spine, sharp in character w shooting pain towards the top of the scalp. Pain is provoked by bright light. Pain is alleviated by PT years ago, medications (Palatine, Ibu), ice, repositioning and rest. Oswestry axial pain score at 23. PMH: OA, Asthma, DM II, GERD, Hyperlipidemia, HTN, IBS, CAD, MDD PSH: Lumbar Fusion, Cervical Fusion, Heart Catheterization With Stent, Hysterectomy, Vaginal Wall Repair, Thyroidectomy SH: Negative x3 FH: Non contributory All: See list Meds: See list REVIEW OF ORGAN SYSTEMS: CONSTITUTIONAL: No fevers or chills. No recent weight loss. NEUROLOGICAL: + numbness and tingling along the distal extremities. No seizure disorders or headaches. MUSCULOSKELETAL: + pain PSYCHIATRIC: Denies current depression or suicidal thoughts. Physical Examinations : Constitutional : Cooperative , not in acute distress . Neurologic : Cranial nerve II to XII intact. No focal neurological deficits. Psychiatric : alert & oriented x 3. Matching mood & appropriate affect. Judgment & insight intact. Musculoskeletal : Cervical Spine +BL SUE TTP Motor strength in the deltoid and biceps: Normal right side. Normal Left side Motor strength biceps and the wrist extensors: Normal right side . Normal left side Motor strength in the triceps muscle: Normal right side. Normal left side Deep tendon reflexes: Normal at the biceps. Normal at Brachioradialis. Normal at triceps Vertebral body tenderness to deep palpation over Cervical facet loading test: positive bilaterally Spurling test: positive bilaterally Neck distraction test: positive bilaterally Roslyn sign: positive bilaterally Lumbar spine Motor strength lower extremities ,thigh and legs 5/5 Right side , 5/5 Left side Deep tendon reflexes : Normal Knee Jerk. Normal Ankle Jerk Vertebral body tenderness over Wood Test positive Lumbar facet Loading Test: positive Right / positive Left Range of motion of the lumbar spine Flexion 30 degrees, extension 10 degrees Straight Leg Raise test: Left/ Right positive at degree Juan test: positive right / positive left. Severe tenderness over the Sacroiliac joint on the Right / Left sides Gaenslen test: positive bilaterally Seated flexion test: positive bilaterally. Sacral spine : Severe tenderness over the Sacroiliac joint: right side / left side Range of motion: Flexion of the lumbar spine <60 degrees Range of motion: Extension of the lumbar spine <20 degrees Gaenslen's Test positive Ino's Test positive Juan test: positive right side / left side Thigh Thrust Test Sacral Thrust Test Imaging: MRI non contrast of the brain from 01/05/23 reviewed Assessment/ Plan : Occipital Neuralgia, Cervicogenic CRAFT Recommendation of BL SUE injections. May need a series of injections for optimal pain relief. Risks, benefits of procedure discussed and patient verbalized understanding. Admits to aspirin or anti- coagulant use or medical history of diabetes. Protocol for discontinuation/ continuation of medications kandy procedure discussed. Minimal anesthesia provided, if clinically indicated, consisting of Versed and Fentanyl. All questions answered. I have spent greater than 30 minutes on patient care today. Dr Liang was available by phone for the evaluation of this patient. The time was used to review the medical records including relevant urine studies and Prescription history (MAPs), review of the available imaging, evaluation and examination of the patient, coordination of care with the medical staff and if applicable referring physicians, as well as creation of the medical record PQRS Narrative: Smoking Status Never smoker Home Medications: Ambulatory Orders Albuterol Sulfate [Ventolin HFA] 2 puff INHALATION BID PRN 03/13/14 Aspirin 81 mg PO DAILY 03/13/14 Atorvastatin [Lipitor] 80 mg PO HS 03/13/14 Gabapentin [Neurontin] 300 mg PO TID 03/13/14 INSULIN ASPART (NovoLOG) [NovoLOG] 48 units SQ AC-TID 03/13/14 Insulin Glargine [Lantus] 45 unit SQ BID 03/13/14 Omeprazole [PriLOSEC] 20 mg PO BID 03/13/14 gemfibroziL [Lopid] 600 mg PO BID 03/13/14 metFORMIN HCL [Glucophage] 1,700 mg PO BID 03/13/14 Cholecalciferol [Vitamin D3] 2,000 unit PO DAILY 11/06/15 Ibuprofen [Motrin] 800 mg PO BID PRN 11/06/15 Levothyroxine Sodium [Synthroid] 175 mcg PO DAILY 11/06/15 rOPINIRole HCL [Requip] 1 mg PO HS 11/06/15 Metoprolol Succinate [Metoprolol Succinate ER] 25 mg PO HS 04/26/17 Sertraline [Zoloft] 100 mg PO HS 08/18/17 L.acidoph,Paracasei, B.lactis [Probiotic] 1 each PO DAILY 11/08/17 Multivitamins, Thera [Multivitamin (formulary)] 1 tab PO DAILY 11/08/17 Dapagliflozin Propanediol [Farxiga] 10 mg PO DAILY 10/25/21 HYDROcodone/APAP 10-325MG [Palatine 10-325] 1 tab PO Q6HR PRN 10/25/21 Zolpidem Tartrate [Ambien] 5 mg PO HS PRN 10/25/21 Controlled Substance Measures - Controlled Substance Measures Is patient prescribed a controlled substance at discharge?: No
[2023-03-28 16:05] VITALS: BP 135/79; PULSE 66; RESP 16; TEMP 98.1
== END ==
LOC: PNWHC3 10:42
PROVIDERS: ATTEND Specialist
DX: M54.81 Occipital neuralgia (principal); G44.86 Cervicogenic headache; M19.90 Unspecified osteoarthritis, unspecified site; J45.909 Unspecified asthma, uncomplicated; E11.9 Type 2 diabetes mellitus without complications; K21.9 Gastro-esophageal reflux disease without esophagitis; E78.5 Hyperlipidemia, unspecified; I10 Essential (primary) hypertension; I25.10 Atherosclerotic heart disease of native coronary artery without angina pectoris; F32.9 Major depressive disorder, single episode, unspecified; K58.9 Irritable bowel syndrome, unspecified; Z88.8 Allergy status to other drugs, medicaments and biological substances; Z88.2 Allergy status to sulfonamides; Z79.84 Long term (current) use of oral hypoglycemic drugs; Z79.899 Other long term (current) drug therapy; Z79.4 Long term (current) use of insulin; Z79.51 Long term (current) use of inhaled steroids; Z79.82 Long term (current) use of aspirin
CPT/HCPCS: 99211

== ENCOUNTER → 2023-05-09 | Outpatient (CLI) | payer MEDICARE ==
[2023-05-09 11:32] VITALS: BP 138/85; PULSE 68; RESP 16; TEMP 98.4
--- NOTE | 2023-05-09 13:51 | P.PAINPG ---
PQRS Measure Charge Sheet Comment: HISTORY OF PRESENT ILLNESS: A 67 yr old female w at side presents today w severe and chronic Head and Neck pain x 2 yr (since having Covid) secondary to occipital neuralgia, cervicogenic headache for evaluation s/p BL SUE injection. Pt states she experienced 0 % pain relief x 4 wks s/p procedure. Pt states pain level is provoked at 9 /10 in intensity, constant, localized in the upper cervical spine, sharp in character w shooting pain towards the top of the scalp. Pain is provoked by bright light. Pain is alleviated by PT years ago, medications, ice, repositioning and rest. Oswestry axial pain score at 22. Interventional procedures include BL SUE injections x1 Medications include Moira, Ibu REVIEW OF ORGAN SYSTEMS: CONSTITUTIONAL: No fevers or chills. No recent weight loss. NEUROLOGICAL: + numbness and tingling along the distal extremities. No seizure disorders or headaches. MUSCULOSKELETAL: + pain PSYCHIATRIC: Denies current depression or suicidal thoughts. Physical Examinations : Constitutional : Cooperative , not in acute distress . Neurologic : Cranial nerve II to XII intact. No focal neurological deficits. Psychiatric : alert & oriented x 3. Matching mood & appropriate affect. Judgment & insight intact. Musculoskeletal : Cervical Spine Motor strength in the deltoid and biceps: Normal right side. Normal Left side Motor strength biceps and the wrist extensors: Normal right side . Normal left side Motor strength in the triceps muscle: Normal right side. Normal left side Deep tendon reflexes: Normal at the biceps. Normal at Brachioradialis. Normal at triceps Vertebral body tenderness to deep palpation over Cervical facet loading test: positive bilaterally over BL C2-C3, c3-C4 Spurling test: positive bilaterally Neck distraction test: positive bilaterally Roslyn sign: positive bilaterally Lumbar spine Motor strength lower extremities ,thigh and legs 5/5 Right side , 5/5 Left side Deep tendon reflexes : Normal Knee Jerk. Normal Ankle Jerk Vertebral body tenderness over Wood Test positive Lumbar facet Loading Test: positive Right / positive Left Range of motion of the lumbar spine Flexion 30 degrees, extension 10 degrees Straight Leg Raise test: Left/ Right positive at degree Juan test: positive right / positive left. Severe tenderness over the Sacroiliac joint on the Right / Left sides Gaenslen test: positive bilaterally Seated flexion test: positive bilatera lly. Sacral spine : Severe tenderness over the Sacroiliac joint: right side / left side Range of motion: Flexion of the lumbar spine <60 degrees Range of motion: Extension of the lumbar spine <20 degrees Gaenslen's Test positive Ino's Test positive Juan test: positive right side / left side Thigh Thrust Test Sacral Thrust Test Imaging: MRI non contrast of the cervical spine from 01/05/23 reviewed Assessment/ Plan : Occipital Neuralgia, Cervicogenic CRAFT Recommendation of BL MBB C2-C3, C3-C4 #1. May need a series of injections, up until RFA, for optimal pain relief. Risks, benefits of procedure discussed and patient verbalized understanding. Admits to aspirin or anti- coagulant use or medical history of diabetes. Protocol for discontinuation/ continuation of medications kandy procedure discussed. Minimal anesthesia provided, if clinically indicated, consisting of Versed and Fentanyl. All questions answered. I have spent greater than 30 minutes on patient care today. Dr Liang was available by phone for the evaluation of this patient. The time was used to review the medical records including relevant urine studies and Prescription history (MAPs), review of the available imaging, evaluation and examination of the patient, coordination of care with the medical staff and if applicable referring physicians, as well as creation of the medical record PQRS Narrative: Smoking Status Never smoker Hx Alcohol Use (MH) No Home Medications: Ambulatory Orders Albuterol Sulfate [Ventolin HFA] 2 puff INHALATION BID PRN 03/13/14 Aspirin 81 mg PO DAILY 03/13/14 Atorvastatin [Lipitor] 80 mg PO HS 03/13/14 Gabapentin [Neurontin] 300 mg PO TID 03/13/14 INSULIN ASPART (NovoLOG) [NovoLOG] 48 units SQ AC-TID 03/13/14 Insulin Glargine [Lantus] 45 unit SQ BID 03/13/14 Omeprazole [PriLOSEC] 20 mg PO BID 03/13/14 gemfibroziL [Lopid] 600 mg PO BID 03/13/14 Cholecalciferol [Vitamin D3] 2,000 unit PO DAILY 11/06/15 Ibuprofen [Motrin] 800 mg PO BID PRN 11/06/15 Levothyroxine Sodium [Synthroid] 175 mcg PO DAILY 11/06/15 rOPINIRole HCL [Requip] 1 mg PO HS 11/06/15 Metoprolol Succinate [Metoprolol Succinate ER] 25 mg PO HS 04/26/17 Sertraline [Zoloft] 100 mg PO HS 08/18/17 Multivitamins, Thera [Multivitamin (formulary)] 1 tab PO DAILY 11/08/17 Dapagliflozin Propanediol [Farxiga] 10 mg PO DAILY 10/25/21 HYDROcodone/APAP 10-325MG [Moira 10-325] 1 tab PO Q6HR PRN 10/25/21 Zolpidem Tartrate [Ambien] 5 mg PO HS PRN 10/25/21 Dulaglutide [Trulicity] 4.5 mg SQ WE 04/10/23 Controlled Substance Measures - Controlled Substance Measures Is patient prescribed a controlled substance at discharge?: No
== END ==
LOC: PNWHC3 10:44
PROVIDERS: ATTEND Specialist
DX: M54.81 Occipital neuralgia (principal); G44.86 Cervicogenic headache; Z79.82 Long term (current) use of aspirin; Z88.8 Allergy status to other drugs, medicaments and biological substances; Z88.2 Allergy status to sulfonamides
CPT/HCPCS: 99211

== ENCOUNTER → 2023-05-22 | Outpatient (CLI) | payer MEDICARE ==
--- NOTE | 2023-05-23 09:41 | MM ---
Reason for Exam: Screening (asymptomatic). Last mammogram was performed 5 year(s) and 6 month(s) ago. Patient History: Menarche at age 14. First Full-Term at age 25. Left ovary removed at age 32. Hysterectomy at age 32. Postmenopausal. Other cancer. Risk Values: Ena 5 year model risk: 1.5%. NCI Lifetime model risk: 5.6%. Prior Study Comparison: 11/01/2015 Bilateral Screening Mammogram, [facility]. 11/16/2016 Bilateral Screening Mammogram, [facility]. 11/22/2017 Bilateral Screening Mammogram, [facility]. Tissue Density: There are scattered fibroglandular densities. Findings: Analyzed By CAD. After symmetrical and stable. Benign vascular calcification is present. There are some scattered benign-appearing punctate and round calcifications. There may be a new grouping of calcifications in the upper outer left mid breast 6 cm from the nipple. Additional workup is recommended. Right breast: No suspicious groups of microcalcifications, spiculated or lobular masses, architectural distortion or other secondary signs of malignancy are mammographically apparent. Overall Assessment: Incomplete: need additional imaging evaluation, BI-RAD 0 Management: Diagnostic Mammogram of the left breast. A negative mammogram report should not preclude additional follow up of suspicious palpable abnormalities. Patient should continue monthly self breast exam. A clinical breast exam by your physician is recommended on an annual basis and results should be correlated with mammographic findings. Electronically signed and approved by: Lloyd Dia D.O. Radiologis
== END | disposition home or self-care (01) ==
LOC: RADMAMWWP 10:50
PROVIDERS: ATTEND Family Medicine
DX: Z12.31 Encounter for screening mammogram for malignant neoplasm of breast (principal); Z78.0 Asymptomatic menopausal state
CPT/HCPCS: 77063; 77067

== ENCOUNTER 2023-05-31 10:51 | Day surgery (SDC) | payer MEDICARE ==
[2023-05-28 14:03] VITALS: BMI 34.8
[2023-05-31] MEDS ORDERED: LACTATED RINGERS 1,000 ML IV SCH (11:00)
[2023-05-31 11:20] LABS: Glucose,Whole Blood 162 mg/dL (70-110)
[2023-05-31 11:22] VITALS: TEMP 97
[2023-05-31] MEDS ORDERED: fentaNYL (PF) 50 MCG/ML 2 ML AMP ONE (12:30)
[2023-05-31] MEDS ORDERED: MIDAZOLAM 2 MG/2 ML VIAL ONE (12:30)
[2023-05-31] MEDS ORDERED: methylPREDNISolone ACETATE 40 MG/ML 1 ML VIAL ONE (12:37)
[2023-05-31] MEDS ORDERED: ROPIVACAINE 5MG/ML 20ML VIAL ONE (12:37)
[2023-05-31] MEDS ORDERED: IV FLUID CONTINUATION 1,000 ML IV ONE (12:55)
--- NOTE | 2023-05-31 12:57 | P.PCN ---
Date of Procedure: 05/31/23 Procedure(s) Performed: PREOPERATIVE DIAGNOSIS: 1-Cervical Spondylosis with Facet Arthropathy.without myelopathy. 2-cervicogenic headache. 3-occipital neuralgia POSTOPERATIVE DIAGNOSIS:1-cervical spondylosis with facet arthropathy without myelopathy. 2-cervicogenic headache. 3-occipital neuralgia. PROCEDURES: Diagnostic bilateral C2 , C3, C4 medial branch blocks, with fluoroscopic guidance (fluoroscopy images available in radiology department ) ( to target the facet joint at bilateral C2-3 , C3-4 )# 1ST ANESTHESIA: Monitored anesthesia care as per anesthesia department. EBL: Minimal PROCEDURE INDICATION: The patient with neck pain secondary to cervical arthropathy unresponsive to more conservative treatments. PROCEDURE DESCRIPTION / TECHNIQUE: The patient was seen and identified in the preoperative area. Risks, benefits, complications, and alternatives were discussed with the patient, the patient agreed to proceed with the procedure and signed the consent. IV was started. Vital signs remained stable throughout the procedure. Patient was taken to the OR and time out was completed. The patient was placed in the prone position on the procedure table.. The cervical area was prepped and draped in the usual sterile fashion. Critical pause was taken. Vital signs were closely monitored during the procedure. Conscious sedation was used during the procedure to decrease patients anxiety. Using cross-table lateral fluoroscopy, the centroid of the trapezoid of right C2 ,C3, C4 , was identified, marked, and localized with 1% lidocaine 1 ml at each level for skin and Sub Q infiltrations . Subsequently, a 22 G 3 spinal needle was advanced guided by fluoroscopy to the centroid of the trapezoid of Right C2 ,C3, C4 . [place] tip position was confirmed at the centroid of the trapezoids of Right C2 ,C3 , C4 with anteroposterior fluoroscopy. Subsequently, 2 ml of preservative-free Ropivacaine 0.5% mixed with Depo- Medrol 20 mg and half ml of the mixture was injected after negative aspiration for blood and CSF. [place] was then removed intact the same procedure was repeated at the left C2 ,C3 , C4 levels. COMPLICATIONS: No acute complications. DISPOSITION / PLANS: The patient was placed in a supine position and transferred to the recovery area in a stable condition for observation and was discharged from the recovery room after meeting discharge criteria. Home discharge instructions given to the patient by the staff. The patient was reexamined prior to discharge. The patient will schedule a follow up in the clinic in 2-4 weeks.
[2023-05-31 13:04] LABS: Glucose,Whole Blood 171 mg/dL (70-110)
[2023-05-31 13:10] VITALS: PULSE 67
--- NOTE | 2023-05-31 13:22 | FL ---
EXAMINATION TYPE: FL guided pain mgmt statistic DATE OF EXAM: 05/31/2023 HISTORY: Fluoroscopy time Total dose area product (DAP) in uGy*m?, mGy*cm? (or similar): 0.0146 IMPRESSION: 1. Fluoroscopy time.
[2023-05-31 13:36] VITALS: BP 120/75; RESP 16
== END 2023-05-31 14:10 | disposition home or self-care (01) ==
LOC: ORPAIN 10:51
PROVIDERS: ATTEND Specialist
DX: M47.812 Spondylosis without myelopathy or radiculopathy, cervical region (principal); G44.86 Cervicogenic headache; M54.81 Occipital neuralgia; I10 Essential (primary) hypertension; I25.2 Old myocardial infarction; E78.5 Hyperlipidemia, unspecified; I25.10 Atherosclerotic heart disease of native coronary artery without angina pectoris; E11.9 Type 2 diabetes mellitus without complications; J45.909 Unspecified asthma, uncomplicated; Z95.5 Presence of coronary angioplasty implant and graft; Z88.2 Allergy status to sulfonamides; Z88.5 Allergy status to narcotic agent
CPT/HCPCS: 64490; 64491 ×2; J2250; J1030; J3010; J2795

== ENCOUNTER → 2023-06-04 | Outpatient (CLI) | payer MEDICARE ==
--- NOTE | 2023-06-04 14:34 | MM ---
Reason for Exam: Additional evaluation requested from abnormal screening. Last screening mammogram was performed less than 1 month ago. Patient History: Menarche at age 14. First Full-Term at age 25. Left ovary removed at age 32. Hysterectomy at age 32. Postmenopausal. Risk Values: Ena 5 year model risk: 1.5%. NCI Lifetime model risk: 5.6%. Prior Study Comparison: 11/16/2016 Bilateral Screening Mammogram, [facility]. 11/22/2017 Bilateral Screening Mammogram, [facility]. 05/22/2023 Bilateral MG 3D screening mammo w/cad, [facility]. Tissue Density: Left: There are scattered fibroglandular densities. Findings: Analyzed By CAD. Grouped microcalcifications upper outer quadrant left breast middle depth appear punctate and heterogeneous. Further tissue sampling is recommended. Overall Assessment: Suspicious, BI-RAD 4 Management: Stereotactic Core Biopsy of the left breast. . Results were given to the patient verbally at the time of exam. Electronically signed and approved by: Reji Pichardo M.D. Radiologist
== END | disposition home or self-care (01) ==
LOC: RADMAMWWP 13:22
PROVIDERS: ATTEND Family Medicine
DX: R92.322 Mammographic fibroglandular density, left breast (principal); Z78.0 Asymptomatic menopausal state
CPT/HCPCS: 77065; G0279; 77061

== ENCOUNTER → 2023-06-27 | Day surgery (SDC) | payer MEDICARE ==
[2023-06-27 07:55] VITALS: RESP 16
[2023-06-27 09:13] VITALS: BP 118/77; PULSE 65; TEMP 97.8
--- NOTE | 2023-06-27 13:02 | MM ---
Date of Procedure: 06/27/23 Preoperative Diagnosis: Microcalcifications of concern left breast Postoperative Diagnosis: Same Procedure(s) Performed: Left breast stereotactic core biopsy Anesthesia: local Surgeon: Yessy Chiu Pathology: other (Breast tissue with microcalcifications of concern) Condition: stable Disposition: same day Indications for Procedure: Microcalcifications of concern left breast Operative Findings: Radiographic specimen reveals microcalcifications of concern adequately sampled Description of Procedure: The patient is a 67-year-old white female who underwent a routine screening mammogram was noted to have microcalcifications of concern in the upper outer quadrant of the left breast. Stereotactic core biopsy was recommended. Risks and benefits of the procedure were discussed with the patient and she wished to proceed. The patient was taken to the stereotactic core biopsy room. She was positioned in the upright chair. A molding room supervisor film was obtained the CC from above approach was utilized. The microcalcifications of concern were identified. The area was targeted. The breast was prepped using chlorhexidine. 20 mL of 1% lidocaine was used to anesthetize the area of concern. A petite needle was used to sample the specimen. The needle was driven to the correct coordinates. A prefire film was obtained. The needle was noted to be in the correct location. The needle was fired. A posterior film was obtained. The needle was noted to be in the correct location. 24 core biopsy specimens were obtained. Radiograph of the specimens revealed that the calcifications of concern had been adequately sampled. H Jose bowtie clip was deployed. This was in the correct location. The patient tolerated the procedure in stable condition. The patient will follow with Dr. Cruz next week. The specimen was sent to pathology. TA
== END ==
LOC: RADMAMWWP 07:09
PROVIDERS: ATTEND Surgery
DX: N60.12 Diffuse cystic mastopathy of left breast (principal)
CPT/HCPCS: 88305; 19081; A4648; J2001

== ENCOUNTER → 2023-06-27 | Outpatient (CLI) | payer MEDICARE ==
--- NOTE | 2023-06-27 08:07 | P.GSHP ---
History of Present Illness H&P Date: 06/27/23 Chief Complaint: Abnormal left breast mammogram Sabrina is a 67-year-old white female seen in consultation for Dr. Ireland. [place] [id number]. This revealed a lesion of concern in the left breast and additional views were obtained on [id number]. This revealed microcalcifications upper outer quadrant left breast for which stereotactic core biopsy was recommended. She did not feel anything of concern in her breast. This was a routine screening mammogram. Her last mammogram was several years ago. She has never had any surgery on her breast or any biopsies. She does not complain of any recent trauma or infection in her br east. She is not complaining of any nipple discharge or skin changes. The patient has had a history of thyroid cancer in 1984, she had a total thyroidectomy, she did not have radioactive iodine. Caffeine: diet coke multiple cans/day nicotine: none chocolate: weekly BCP: for about 2 years hormones: none Family History: patient: Thyroid cancer Mother: Cervical cancer from this Sister: Cervical cancer from this brother: from lung cancer Hormonal history: Menarche: 14 , breast fed: yes, age at first : 25 menopause: hysterectomy at 32, left one ovary, done for bleeding hormones: none Surgical History: multiple D&C hysterectomy and one ovary removed cervical and lumbar fusions cataract surgery bilateral Medical History: cervical disc disease for surgery repeated on this in July 2023 diabetes HTN [place] 2010 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 high cholesterol asthma Social History: nicotine: none alcohol: none drugs:none - Constitutional Constitutional: Denies chills, Denies fever - EENT Eyes: denies blurred vision, denies pain Ears: deny: decreased hearing Ears, nose, mouth and throat: Reports headache, Denies sore throat - Breasts Breasts: bilateral: as per HPI - Cardiovascular Cardiovascular: Reports as per HPI - Respiratory Comment: asthma Respiratory: Denies cough, Denies 7 - Gastrointestinal Gastrointestinal: Denies abdominal pain, Denies diarrhea, Denies nausea, Denies vomiting - Genitourinary (Female) Genitourinary: Denies dysuria, Denies hematuria - Menstruation Menstruation: Reports post hysterectomy - Musculoskeletal Musculoskeletal: Reports as per HPI - Integumentary Comment: autoimmune skin lesions - Neurological Neurological: Reports numbness, Denies weakness - Psychiatric Psychiatric: Reports depression - Endocrine Endocrine: Reports fatigue - Hematologic/Lymphatic Comment: baby aspirin - Allergic/Immunologic Allergic/Immunologic: Reports as per HPI Past Medical History Past Medical History: Asthma, Coronary Artery Disease (CAD), Cancer, Diabetes Mellitus, GERD/Reflux, Hyperlipidemia, Hypertension, Myocardial Infarction ([place]), Osteoarthritis (OA) Additional Past Medical History / Comment(s): IBS. "WEATHER INDUCED ASTHMA". HX OF THYROID CANCER (1984) WITH SURGERY. BACK & NECK PAIN, DIFFICULTY WALKING DUE TO PAIN. HEADACHES. Last Myocardial Infarction Date:: 2010 History of Any Multi-Drug Resistant Organisms: ESBL Date of last positivie culture/infection: unknown MDRO Source:: ESCL URINE Past Surgical History: Back Surgery, Heart Catheterization With Stent, Hysterectomy, Orthopedic Surgery Additional Past Surgical History / Comment(s): Thyroidectomy, neck fusion, lower back fusion, vaginal wall repair, COLONOSCOPY, BILATERAL CATARACTS REMOVED WITH LENS IMPLANTS. Past Anesthesia/Blood Transfusion Reactions: No Reported Reaction, Motion Sickness Date of Last Stent Placement:: MAY 2011 Past Psychological History: Depression Smoking Status: Never smoker Past Alcohol Use History: None Reported Past Drug Use History: None Reported - Past Family History Mother Family Medical History: Cancer Additional Family Medical History / Comment(s): CERVICAL CANCER. Sister(s) Family Medical History: Cancer Additional Family Medical History / Comment(s): CERVICAL CANCER. Brother(s) Family Medical History: Cancer Additional Family Medical History / Comment(s): LUNG CANCER. Medications and Allergies Home Medications Medication Instructions Recorded Confirmed Type Albuterol Sulfate [Ventolin HFA] 2 puff INHALATION BID PRN 03/13/14 06/27/23 History Aspirin 81 mg PO DAILY 03/13/14 06/27/23 History Atorvastatin [Lipitor] 80 mg PO HS 03/13/14 06/27/23 History Gabapentin [Neurontin] 600 mg PO BID 03/13/14 06/27/23 History INSULIN ASPART (NovoLOG) [NovoLOG] 48 units SQ AC-TID 03/13/14 06/05/23 History Insulin Glargine [Lantus] 45 unit SQ BID 03/13/14 06/27/23 History Omeprazole [PriLOSEC] 20 mg PO BID 03/13/14 06/27/23 History gemfibroziL [Lopid] 600 mg PO BID 03/13/14 06/27/23 History Cholecalciferol [Vitamin D3] 2,000 unit PO DAILY 11/06/15 06/27/23 History Ibuprofen [Motrin] 800 mg PO BID PRN 11/06/15 06/27/23 History Levothyroxine Sodium [Synthroid] 175 mcg PO DAILY 11/06/15 06/27/23 History rOPINIRole HCL [Requip] 1 mg PO HS 11/06/15 06/27/23 History Metoprolol Succinate [Metoprolol 25 mg PO HS 04/26/17 06/27/23 History Succinate ER] Sertraline [Zoloft] 100 mg PO HS 08/18/17 06/27/23 History Dapagliflozin Propanediol [Farxiga] 10 mg PO DAILY 10/25/21 06/27/23 History HYDROcodone/APAP 10-325MG [[place] 1 tab PO Q6HR PRN 10/25/21 06/27/23 History 10-325] Zolpidem Tartrate [Ambien] 5 mg PO HS PRN 10/25/21 06/27/23 History Dulaglutide [Trulicity] 4.5 mg SQ WE 04/10/23 06/27/23 History Gabapentin 900 mg PO HS 05/28/23 06/27/23 History Allergies Allergy/AdvReac Type Severity Reaction Status Date / Time cefaclor [From [facility]] Allergy Rash/Hives Verified 06/27/23 07:48 Sulfa (Sulfonamide Allergy Rash/Hives Verified 06/27/23 07:48 Antibiotics) Surgical - Exam - General no distress - Eyes normal ocular movement - Neck trachea midline - Respiratory normal respiratory effort, clear to auscultation - Cardiovascular Rhythm: regular Heart Sounds: normal: S1, S2 - Abdomen Abdomen: soft, non tender, no guarding, no rigid, no rebound - Integumentary normal turgor, multiople tattoos - Neurologic no disoriented, no combative - Musculoskeletal normal gait - Psychiatric oriented to time, oriented to person, oriented to place, speech is normal, memory intact Breast exam: BRA: 42C Inspection: right breast larger than left breast, grade 3 ptosis bilateral Palpation: Right breast: Multiple positional exam fibrocystic changes no dominant masses or nodules of concern Right axilla: No adenopathy of concern Left breast: Multiple positional exam no dominant masses or nodules of concern Left axilla: No adenopathy of concern Results Mammogram reviewed with Dr. 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 Risks include but are not limited to bleeding, infection, reaction to the anesthetic. If the tissue specimen was felt to be discordant further tissue sampling may be necessary. The patient understands and wishes to proceed. CC: Dr. Ireland
== END ==
LOC: WWCWWP 07:08
PROVIDERS: ATTEND Surgery
DX: E11.36 Type 2 diabetes mellitus with diabetic cataract (principal); I10 Essential (primary) hypertension; E78.00 Pure hypercholesterolemia, unspecified; F32.A Depression, unspecified; I25.2 Old myocardial infarction; I25.10 Atherosclerotic heart disease of native coronary artery without angina pectoris; J45.909 Unspecified asthma, uncomplicated; K21.9 Gastro-esophageal reflux disease without esophagitis; K58.9 Irritable bowel syndrome, unspecified; L28.0 Lichen simplex chronicus; R92.0 Mammographic microcalcification found on diagnostic imaging of breast; M19.90 Unspecified osteoarthritis, unspecified site; Z85.850 Personal history of malignant neoplasm of thyroid; Z79.4 Long term (current) use of insulin; Z79.890 Hormone replacement therapy; Z88.1 Allergy status to other antibiotic agents; Z88.2 Allergy status to sulfonamides; Z79.82 Long term (current) use of aspirin; Z86.69 Personal history of other diseases of the nervous system and sense organs; Z79.899 Other long term (current) drug therapy; Z79.85 Long-term (current) use of injectable non-insulin antidiabetic drugs

== ENCOUNTER → 2023-07-04 | Outpatient (CLI) | payer MEDICARE ==
--- NOTE | 2023-07-04 13:38 | P.PN ---
Subjective Progress Note Date: 07/04/23 Principal diagnosis: fibrocystic breast changes Abnormal left breast mammogram Sabrina is a 67-year-old white female seen in consultation on 06-27-[address] Ireland. [place] [id number]. This revealed a lesion of concern in the left breast and additional views were obtained on [id number]. This revealed microcalcifications upper outer quadrant left breast for which stereotactic core biopsy was recommended. She did not feel anything of concern in her breast. This was a routine screening mammogram. Her last mammogram was several years ago. She has never had any surgery on her breast or any biopsies. She does not complain of any recent trauma or infection in her breast. She is not complaining of any nipple discharge or skin changes. The patient has had a history of thyroid cancer in 1984, she had a total thyroidectomy, she did not have radioactive iodine. She had a stero biopsy on 06-27-23 which was benign concordant. The pathology revealed fibroadenomatoid hyperplasia with calcifications and Bactrim fibrocystic changes. She tolerated the procedure without difficulty. Caffeine: diet coke multiple cans/day nicotine: none chocolate: weekly BCP: for about 2 years hormones: none Family History: patient: Thyroid cancer Mother: Cervical cancer from this Sister: Cervical cancer from this brother: from lung cancer Hormonal history: Menarche: 14 , breast fed: yes, age at first : 25 menopause: hysterectomy at 32, left one ovary, done for bleeding hormones: none Surgical History: multiple D&C hysterectomy and one ovary removed cervical and lumbar fusions cataract surgery bilateral Medical History: cervical disc disease for surgery repeated on this in July 2023 diabetes HTN [place] 2010 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 high cholesterol asthma Social History: nicotine: none alcohol: none drugs:none - Constitutional Constitutional: Denies chills, Denies fever - EENT Eyes: denies blurred vision, denies pain Ears: deny: decreased hearing Ears, nose, mouth and throat: Reports headache, Denies sore throat - Breasts Breasts: bilateral: as per HPI - Cardiovascular Cardiovascular: Reports as per HPI - Respiratory Comment: asthma Respiratory: Denies cough - Gastrointestinal Gastrointestinal: Denies abdominal pain, Denies diarrhea, Denies nausea, Denies vomiting - Genitourinary (Female) Genitourinary: Denies dysuria, Denies hematuria - Menstruation Menstruation: Reports post hysterectomy - Musculoskeletal Musculoskeletal: Reports as per HPI - Integumentary Comment: autoimmune skin lesions - Neurological Neurological: Reports numbness, Denies weakness - Psychiatric Psychiatric: Reports depression - Endocrine Endocrine: Reports fatigue - Hematologic/Lymphatic Comment: baby aspirin - Allergic/Immunologic Allergic/Immunologic: Reports as per HPI Past Medical History Past Medical History: Asthma, Coronary Artery Disease (CAD), Cancer, Diabetes Mellitus, GERD/Reflux, Hyperlipidemia, Hypertension, Myocardial Infarction ([place]), Osteoarthritis (OA) Additional Past Medical History / Comment(s): IBS. "WEATHER INDUCED ASTHMA". HX OF THYROID CANCER (1984) WITH SURGERY. BACK & NECK PAIN, DIFFICULTY WALKING DUE TO PAIN. HEADACHES. Last Myocardial Infarction Date:: 2010 History of Any Multi-Drug Resistant Organisms: ESBL Date of last positivie culture/infection: unknown MDRO Source:: ESCL URINE Past Surgical History: Back Surgery, Heart Catheterization With Stent, Hysterectomy, Orthopedic Surgery Additional Past Surgical History / Comment(s): Thyroidectomy, neck fusion, lower back fusion, vaginal wall repair, COLONOSCOPY, BILATERAL CATARACTS REMOVED WITH LENS IMPLANTS. Past Anesthesia/Blood Transfusion Reactions: No Reported Reaction, Motion Sickness Date of Last Stent Placement:: MAY 2011 Past Psychological History: Depression Smoking Status: Never smoker Past Alcohol Use History: None Reported Past Drug Use History: None Reported - Past Family History Mother Family Medical History: Cancer Additional Family Medical History / Comment(s): CERVICAL CANCER. Sister(s) Family Medical History: Cancer Additional Family Medical History / Comment(s): CERVICAL CANCER. Brother(s) Family Medical History: Cancer Additional Family Medical History / Comment(s): LUNG CANCER. Medications and Allergies Home Medications Medication Instructions Recorded Confirmed Type Albuterol Sulfate [Ventolin HFA] 2 puff INHALATION BID PRN 03/13/14 06/27/23 History Aspirin 81 mg PO DAILY 03/13/14 06/27/23 History Atorvastatin [Lipitor] 80 mg PO HS 03/13/14 06/27/23 History Gabapentin [Neurontin] 600 mg PO BID 03/13/14 06/27/23 History INSULIN ASPART (NovoLOG) [NovoLOG] 48 units SQ AC-TID 03/13/14 06/05/23 History Insulin Glargine [Lantus] 45 unit SQ BID 03/13/14 06/27/23 History Omeprazole [PriLOSEC] 20 mg PO BID 03/13/14 06/27/23 History gemfibroziL [Lopid] 600 mg PO BID 03/13/14 06/27/23 History Cholecalciferol [Vitamin D3] 2,000 unit PO DAILY 11/06/15 06/27/23 History Ibuprofen [Motrin] 800 mg PO BID PRN 11/06/15 06/27/23 History Levothyroxine Sodium [Synthroid] 175 mcg PO DAILY 11/06/15 06/27/23 History rOPINIRole HCL [Requip] 1 mg PO HS 11/06/15 06/27/23 History Metoprolol Succinate [Metoprolol 25 mg PO HS 04/26/17 06/27/23 History Succinate ER] Sertraline [Zoloft] 100 mg PO HS 08/18/17 06/27/23 History Dapagliflozin Propanediol [Farxiga] 10 mg PO DAILY 10/25/21 06/27/23 History HYDROcodone/APAP 10-325MG [[place] 1 tab PO Q6HR PRN 10/25/21 06/27/23 History 10-325] Zolpidem Tartrate [Ambien] 5 mg PO HS PRN 10/25/21 06/27/23 History Dulaglutide [Trulicity] 4.5 mg SQ WE 04/10/23 06/27/23 History Gabapentin 900 mg PO HS 05/28/23 06/27/23 History Allergies Allergy/AdvReac Type Severity Reaction Status Date / Time cefaclor [From [facility]] Allergy Rash/Hives Verified 06/27/23 07:48 Sulfa (Sulfonamide Allergy Rash/Hives Verified 06/27/23 07:48 Antibiotics) Objective - Vital Signs Vital signs: Intake & Output 07/03/23 07/04/23 07/04/23 18:59 06:59 18:59 Weight 92.079 kg - Constitutional General appearance: Present: cooperative - Neck Neck: Present: normal ROM - Respiratory Respiratory: bilateral: CTA - Cardiovascular Heart sounds: normal: S1, S2 - Integumentary Integumentary Comment(s): Biopsy site clean and dry no evidence of any infection or hematoma left breast Integumentary: Present: normal turgor Assessment and Plan Assessment: Impression: Patient status post stero-tactic core biopsy benign Plan: Left breast mammogram in 6 months with examination at that time CC: Dr. Ireland
[2023-07-04 13:52] VITALS: BP 123/75; PULSE 68; RESP 18; TEMP 98
== END ==
LOC: WWCWWP 13:20
PROVIDERS: ATTEND Surgery
DX: N60.12 Diffuse cystic mastopathy of left breast (principal); E11.36 Type 2 diabetes mellitus with diabetic cataract; E78.00 Pure hypercholesterolemia, unspecified; I10 Essential (primary) hypertension; F32.A Depression, unspecified; I25.10 Atherosclerotic heart disease of native coronary artery without angina pectoris; I25.2 Old myocardial infarction; J45.909 Unspecified asthma, uncomplicated; K21.9 Gastro-esophageal reflux disease without esophagitis; M19.90 Unspecified osteoarthritis, unspecified site; K58.9 Irritable bowel syndrome, unspecified; Z79.4 Long term (current) use of insulin; Z79.84 Long term (current) use of oral hypoglycemic drugs; Z79.890 Hormone replacement therapy; Z85.850 Personal history of malignant neoplasm of thyroid; Z88.2 Allergy status to sulfonamides; Z88.8 Allergy status to other drugs, medicaments and biological substances; Z79.85 Long-term (current) use of injectable non-insulin antidiabetic drugs; Z79.899 Other long term (current) drug therapy; Z79.82 Long term (current) use of aspirin

== ENCOUNTER → 2024-01-10 | Outpatient (CLI) | payer MEDICARE ==
--- NOTE | 2024-01-10 13:45 | MM ---
Reason for Exam: Follow-up at short interval from prior study. Last screening mammogram was performed 7 month(s) ago. Patient History: Menarche at age 14. First Full-Term at age 25. Left ovary removed at age 32. Hysterectomy at age 32. Postmenopausal. Previous Hyperplasia w/o Atypia at age 67. 06/27/2023, Benign MG stereo VAD BX LT on the left side. Risk Values: Ena 5 year model risk: 1.8%. NCI Lifetime model risk: 6.4%. Prior Study Comparison: 11/22/2017 Bilateral Screening Mammogram, [facility]. 05/22/2023 Bilateral MG 3D screening mammo w/cad, [facility]. 06/04/2023 Left MG 3D work up w/cad LT, [facility]. Tissue Density: Left: There are scattered areas of fibroglandular density. Findings: Analyzed By CAD. Microclip left breast on recent biopsy. Benign vascular and a few scattered round calcifications are redemonstrated. No significant change from prior exams. Overall Assessment: Benign, BI-RAD 2 Management: Screening Mammogram of both breasts in 6 months. Results were given to the patient verbally at the time of exam. Patient should continue monthly self-breast exams. A clinical breast exam by your physician is recommended on an annual basis. This exam should not preclude additional follow-up of suspicious palpable abnormalities. Note on Ena scores and lifetime risk: 1. A Ena score greater than 3% is considered moderate risk. If this is the case, consider specialist referral to assess eligibility for a risk reducing agent. 2. If overall lifetime risk for the development of breast cancer is 20% or higher, the patient may qualify for future screening with alternating mammogram and breast MRI. Electronically signed and approved by: Reji Pichardo M.D. Radiologist
== END | disposition home or self-care (01) ==
LOC: RADMAMWWP 13:08
PROVIDERS: ATTEND Surgery
DX: R92.322 Mammographic fibroglandular density, left breast (principal); R92.8 Other abnormal and inconclusive findings on diagnostic imaging of breast; Z78.0 Asymptomatic menopausal state
CPT/HCPCS: 77065; G0279; 77061

== ENCOUNTER → 2024-01-30 | Outpatient (CLI) | payer MEDICARE ==
[2024-01-30 12:18] VITALS: BP 128/74; PULSE 87; RESP 17; TEMP 98.1
--- NOTE | 2024-01-30 12:36 | P.PN ---
Subjective Progress Note Date: 01/30/24 Principal diagnosis: fibrocystic breast disease 01-30-24 Chief Complaint: fibrocystic breast disease/ status post left breast trang Bennett is a 68-year-old white female seen in consultation for Dr. Ireland. She underwent a bilateral screening mammogram on . This revealed a lesion of concern in the left breast and additional views were obtained on [id number]. This revealed microcalcifications upper outer quadrant left breast for which stereotactic core biopsy was recommended. She did not feel anything of concern in her breast. This was a routine screening mammogram. Her last mammogram had been several years ago. She had never had any surgery on her breast or any biopsies. She did not complain of any recent trauma or infection in her breast. She did not complain of any nipple discharge or skin changes. The patient has had a history of thyroid cancer in 1984, she had a total thyroidectomy, she did not have radioactive iodine. Stero biopsy 06-27-23 left breast benign concordant repeat left breast mammogram on 01-10-24 BIRAD 2 nany risk: 5 year 1.8% lifetime risk: 6.4% at this time she is not complaining of any lumps masses or nodules of concern in either breast Caffeine: diet coke multiple cans/day nicotine: none chocolate: weekly BCP: for about 2 years hormones: none Family History: patient: Thyroid cancer Mother: Cervical cancer from this Sister: Cervical cancer from this brother: from lung cancer Hormonal history: Menarche: 14 , breast fed: yes, age at first : 25 menopause: hysterectomy at 32, left one ovary, done for bleeding hormones: none Surgical History: multiple D&C hysterectomy and one ovary removed cervical and lumbar fusions cataract surgery bilateral cervial fusion 2023 Medical History: cervical disc disease for surgery repeated on this in July 2023 diabetes HTN [place] 2010 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 high cholesterol asthma Social History: nicotine: none alcohol: none drugs:none - Constitutional Constitutional: Denies chills, Denies fever - EENT Eyes: denies blurred vision, denies pain Ears: deny: decreased hearing Ears, nose, mouth and throat: Reports headache, Denies sore throat - Breasts Breasts: bilateral: as per HPI - Cardiovascular Cardiovascular: Reports as per HPI - Respiratory Comment: asthma Respiratory: Denies cough - Gastrointestinal Gastrointestinal: Denies abdominal pain, Denies diarrhea, Denies nausea, Denies vomiting - Genitourinary (Female) Genitourinary: Denies dysuria, Denies hematuria - Menstruation Menstruation: Reports post hysterectomy - Musculoskeletal Musculoskeletal: Reports as per HPI - Integumentary Comment: autoimmune skin lesions - Neurological Neurological: Reports numbness, Denies weakness - Psychiatric Psychiatric: Reports depression - Endocrine Endocrine: Reports fatigue - Hematologic/Lymphatic Comment: baby aspirin - Allergic/Immunologic Allergic/Immunologic: Reports as per HPI Past Medical History Past Medical History: Asthma, Coronary Artery Disease (CAD), Cancer, Diabetes Mellitus, GERD/Reflux, Hyperlipidemia, Hypertension, Myocardial Infarction ([place]), Osteoarthritis (OA) Additional Past Medical History / Comment(s): IBS. "WEATHER INDUCED ASTHMA". HX OF THYROID CANCER (1984) WITH SURGERY. BACK & NECK PAIN, DIFFICULTY WALKING DUE TO PAIN. HEADACHES. Last Myocardial Infarction Date:: 2010 History of Any Multi-Drug Resistant Organisms: ESBL Date of last positivie culture/infection: unknown MDRO Source:: ESCL URINE Past Surgical History: Back Surgery, Heart Catheterization With Stent, Hysterectomy, Orthopedic Surgery Additional Past Surgical History / Comment(s): Thyroidectomy, neck fusion, lower back fusion, vaginal wall repair, COLONOSCOPY, BILATERAL CATARACTS REMOVED WITH LENS IMPLANTS. Past Anesthesia/Blood Transfusion Reactions: No Reported Reaction, Motion Sickness Date of Last Stent Placement:: MAY 2011 Past Psychological History: Depression Smoking Status: Never smoker Past Alcohol Use History: None Reported Past Drug Use History: None Reported - Past Family History Mother Family Medical History: Cancer Additional Family Medical History / Comment(s): CERVICAL CANCER. Sister(s) Family Medical History: Cancer Additional Family Medical History / Comment(s): CERVICAL CANCER. Brother(s) Family Medical History: Cancer Additional Family Medical History / Comment(s): LUNG CANCER. Medications and Allergies Home Medications Medication Instructions Recorded Confirmed Type Albuterol Sulfate [Ventolin HFA] 2 puff INHALATION BID PRN 03/13/14 06/27/23 History Aspirin 81 mg PO DAILY 03/13/14 06/27/23 History Atorvastatin [Lipitor] 80 mg PO HS 03/13/14 06/27/23 History Gabapentin [Neurontin] 600 mg PO BID 03/13/14 06/27/23 History INSULIN ASPART (NovoLOG) [NovoLOG] 48 units SQ AC-TID 03/13/14 06/05/23 History Insulin Glargine [Lantus] 45 unit SQ BID 03/13/14 06/27/23 History Omeprazole [PriLOSEC] 20 mg PO BID 03/13/14 06/27/23 History gemfibroziL [Lopid] 600 mg PO BID 03/13/14 06/27/23 History Cholecalciferol [Vitamin D3] 2,000 unit PO DAILY 11/06/15 06/27/23 History Ibuprofen [Motrin] 800 mg PO BID PRN 11/06/15 06/27/23 History Levothyroxine Sodium [Synthroid] 175 mcg PO DAILY 11/06/15 06/27/23 History rOPINIRole HCL [Requip] 1 mg PO HS 11/06/15 06/27/23 History Metoprolol Succinate [Metoprolol 25 mg PO HS 04/26/17 06/27/23 History Succinate ER] Sertraline [Zoloft] 100 mg PO HS 08/18/17 06/27/23 History Dapagliflozin Propanediol [Farxiga] 10 mg PO DAILY 10/25/21 06/27/23 History HYDROcodone/APAP 10-325MG [Denison 1 tab PO Q6HR PRN 10/25/21 06/27/23 History 10-325] Zolpidem Tartrate [Ambien] 5 mg PO HS PRN 10/25/21 06/27/23 History Dulaglutide [Trulicity] 4.5 mg SQ WE 04/10/23 06/27/23 History Gabapentin 900 mg PO HS 05/28/23 06/27/23 History Allergies Allergy/AdvReac Type Severity Reaction Status Date / Time cefaclor [From [facility]] Allergy Rash/Hives Verified 06/27/23 07:48 Sulfa (Sulfonamide Allergy Rash/Hives Verified 06/27/23 07:48 Antibiotics) Objective - Vital Signs Vital signs: Vital Signs Temp 98.1 F 01/30/24 12:16 Pulse 87 01/30/24 12:16 Resp 17 01/30/24 12:16 BP 128/74 01/30/24 12:16 Pulse Ox 97 01/30/24 12:16 FiO2 Intake & Output 01/29/24 01/30/24 01/30/24 18:59 06:59 18:59 Weight 97.069 kg - Constitutional General appearance: Present: cooperative - EENT Eyes: Present: EOMI ENT: Present: hearing grossly normal - Neck Neck: Present: normal ROM - Respiratory Respiratory: bilateral: CTA - Cardiovascular Rhythm: regular Heart sounds: normal: S1, S2 - Integumentary Integumentary: Present: normal turgor - Musculoskeletal Musculoskeletal: Present: gait normal - Psychiatric Psychiatric: Present: A&O x's 3, appropriate affect, intact judgment & insight - Additional findings Additional findings: Breast exam: BRA: 42C Inspection: right breast larger than left breast, grade 3 ptosis bilateral Palpation: Right breast: Multiple positional exam fibrocystic changes no dominant masses or nodules of concern Right axilla: No adenopathy of concern Left breast: Multiple positional exam no dominant masses or nodules of concern Left axilla: No adenopathy of concern Assessment and Plan Assessment: Impression: cervical disc disease for surgery repeated on this in July 2023 diabetes HTN [place] 2010 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 Ireland
== END ==
LOC: WWCWWP 11:57
PROVIDERS: ATTEND Surgery
DX: R92.8 Other abnormal and inconclusive findings on diagnostic imaging of breast (principal); N60.11 Diffuse cystic mastopathy of right breast; M50.30 Other cervical disc degeneration, unspecified cervical region; E11.36 Type 2 diabetes mellitus with diabetic cataract; I10 Essential (primary) hypertension; E78.00 Pure hypercholesterolemia, unspecified; J45.909 Unspecified asthma, uncomplicated; L28.0 Lichen simplex chronicus; I25.2 Old myocardial infarction; Z85.850 Personal history of malignant neoplasm of thyroid; Z79.4 Long term (current) use of insulin; Z79.899 Other long term (current) drug therapy; Z79.84 Long term (current) use of oral hypoglycemic drugs; Z79.85 Long-term (current) use of injectable non-insulin antidiabetic drugs; Z88.2 Allergy status to sulfonamides; Z88.1 Allergy status to other antibiotic agents

== ENCOUNTER → 2024-09-17 | Outpatient (CLI) | payer MEDICARE ==
[2024-09-17 19:43] LABS: Basophils # (A) 0.08 X 10*3/uL (0.00-0.10); Basophils % (A) 0.9 %; Eosinophils # (A) 0.18 X 10*3/uL (0.04-0.35); Eosinophils % (A) 1.9 %; HCT 39.4 % (37.2-46.3); HGB 13.5 g/dL (12.0-15.0); Lymphocytes # (A) 1.59 X 10*3/uL (0.90-5.00); Lymphocytes % (A) 16.9 %; MCHC 34.3 g/dL (32.0-37.0); MCV 87.6 FL (80.0-97.0); Mean Platelet Volume 9.6 FL (9.5-12.2); Monocytes # (A) 0.69 X 10*3/uL (0.20-1.00); Monocytes % (A) 7.3 %; NRBC Per 100 WBC 0 X 10*3/uL (0.00-0.01); Neutrophils % (A) 72.3 %; Platelet Count 313 X 10*3/uL (140-440); RDW 14.6 % (11.5-14.5); WBC 9.41 X 10*3/uL (4.50-10.00)
== END | disposition home or self-care (01) ==
LOC: LABPAT 14:07
PROVIDERS: ATTEND Orthopaedic Surgery
DX: Z01.812 Encounter for preprocedural laboratory examination (principal); M65.342 Trigger finger, left ring finger
CPT/HCPCS: 85025

== ENCOUNTER 2024-10-01 07:53 | Day surgery (SDC) | payer MEDICARE ==
[2024-09-29 12:37] VITALS: BMI 37.8
--- NOTE | 2024-09-30 13:28 | HP ---
HISTORY AND PHYSICAL DATE OF SURGERY: 10/01/2024. HISTORY OF PRESENT ILLNESS: Sabrina Sterling is a 68-year-old patient seen with symptomatic left ring finger trigger finger. Options discussed, surgical release of A1 devin of the left ring finger. Consent was obtained. PAST MEDICAL HISTORY: Hypertension, hyperlipidemia, insulin-dependent diabetes. PAST SURGICAL HISTORY: Spinal surgery, cervical surgery, hysterectomy. DAILY MEDICATIONS: 1. Atorvastatin. 2. Farxiga. 3. Lantus insulin. 4. Lopid. 5. Metoprolol. 6. NovoLog insulin. 7. Prilosec. 8. Percocet. 9. Levothyroxine. 10.Trulicity. 11.Ventolin inhaler. ALLERGIES: Ceclor, sulfa. SOCIAL HISTORY: She denies tobacco use. PHYSICAL EVALUATION OF THE LEFT HAND: She is tender along the A1 devin of the left ring finger. There is triggering of that finger. There is good perfusion distally. There is a good radial pulse present. IMAGING STUDIES: Radiographs of the left hand failed to reveal any acute changes. There were some mild osteoarthritic changes present. IMPRESSION: Left ring finger trigger finger. PLAN: Release A1 devin, left ring finger. MMODL / IJN: [id number] /
[~2024-10-01 07:53] MED LIST changes: +DEXAMETHASONE SOD PHOSPHATE 4 MG/ML 1 ML VIAL IV ONE; +HYDROmorphone 0.5 MG/0.5 ML SYRINGE IVP PRN; -LACTATED RINGERS 1,000 ML IV SCH; +droPERidol 2.5 MG/ML VIAL IVP ONE
[2024-10-01 08:14] VITALS: TEMP 96.8
[2024-10-01] MEDS: IV FLUID CONTINUATION 1,000 ML IV ONE (08:23)
[2024-10-01] MEDS: LACTATED RINGERS 1,000 ML IV SCH (08:23)
[2024-10-01] MEDS: ONDANSETRON 4 MG/2 ML VIAL IVP ONE (08:32)
[2024-10-01 08:34] LABS: Glucose,Whole Blood 219 mg/dL (70-110)
[2024-10-01] MEDS: INSULIN LISPRO (HumaLOG) 100 UNIT/ML 10 mL VL SQ ONE (08:45)
[2024-10-01] MEDS ORDERED: MIDAZOLAM 2 MG/2 ML VIAL ONE (09:03)
[2024-10-01] MEDS ORDERED: KETAMINE HCL IN 0.9 % NACL 50 MG/5 ML SYRINGE ONE (09:03)
[2024-10-01] MEDS ORDERED: fentaNYL (PF) 50 MCG/ML 2 ML AMP ONE (09:03)
[2024-10-01] MEDS ORDERED: PROPOFOL 10 MG/ML 20 ML VIAL IV ONE (09:03)
[2024-10-01] MEDS: BUPIVACAINE (PF) 0.25% 30 ML VIAL SQ ONE (09:19)
--- NOTE | 2024-10-01 09:35 | P.OP ---
Date of Procedure: 10/01/24 Preoperative Diagnosis: Left ring finger trigger finger Postoperative Diagnosis: Left ring finger trigger finger Procedure(s) Performed: Release A1 devin left ring finger Anesthesia: MAC, local Surgeon: Ky Oliver Estimated Blood Loss (ml): 0 Pathology: none sent Condition: stable Disposition: PACU Indications for Procedure: Six 8-year-old patient seen with a symptomatic left ring finger trigger finger. After having treatment options discussed, she elected to proceed with release A1 devin left ring finger. Operative Findings: See description of procedure Description of Procedure: Patient was taken to the operative suite. She received preoperative IV antibiotics. She underwent IV sedation by the department anesthesia. A well- padded tourniquet placed proximal left upper extremity. Left upper extremity was prepped and draped in the normal sterile fashion. I infiltrated the proposed incision site with about 5 cc of quarter percent plain Marcaine. Once sufficient local anesthesia was noted I elevated the extremity insufflated tourniquet to 250. I now made an incision along the A1 devin area of the left ring finger sharply through skin. I dissected down to the A1 devin and identified it. Retractors were positioned. I now released the A1 devin with blunt tenotomy's. I noted complete release of the A1 devin. I noted good range of motion of the digit and good excursion of the tendon with no impingement. The wound was irrigated. The skin was repaired with nylon suture. Sterile dressings were applied. The tourniquet was now released with immediate capillary refill noted to all digits. The patient was now awakened having tolerated the procedure well.
[2024-10-01 09:38] VITALS: PULSE 70; RESP 16
[2024-10-01 09:55] VITALS: BP 122/60
[2024-10-01 09:56] LABS: Glucose,Whole Blood 198 mg/dL (70-110)
== END 2024-10-01 10:18 | disposition home or self-care (01) ==
LOC: OR 07:53
PROVIDERS: ATTEND Orthopaedic Surgery
DX: M65.342 Trigger finger, left ring finger (principal); E11.9 Type 2 diabetes mellitus without complications; E78.5 Hyperlipidemia, unspecified; I10 Essential (primary) hypertension; I25.10 Atherosclerotic heart disease of native coronary artery without angina pectoris; I25.2 Old myocardial infarction; J45.909 Unspecified asthma, uncomplicated; E03.9 Hypothyroidism, unspecified; F32.A Depression, unspecified; K21.9 Gastro-esophageal reflux disease without esophagitis; Z79.4 Long term (current) use of insulin; Z88.1 Allergy status to other antibiotic agents; Z88.2 Allergy status to sulfonamides; Z90.710 Acquired absence of both cervix and uterus; Z79.85 Long-term (current) use of injectable non-insulin antidiabetic drugs; Z79.890 Hormone replacement therapy; Z79.899 Other long term (current) drug therapy; Z85.850 Personal history of malignant neoplasm of thyroid; Z95.5 Presence of coronary angioplasty implant and graft
CPT/HCPCS: 26055; J2250; J0690; J2405; J3010; J2704; J0665

== ENCOUNTER 2024-10-19 08:24 | Day surgery (SDC) | payer MEDICARE ==
[2024-10-16 14:02] VITALS: BMI 37.8
--- NOTE | 2024-10-18 13:35 | HP ---
HISTORY AND PHYSICAL DATE OF SURGERY: 10/19/2024. HISTORY OF PRESENT ILLNESS: Sabrina Sterling, 68-year-old patient, seen with a left palmar hand area infection. She has history of recent left ring finger A1 devin release and was seen in the office with increasing redness of the left hand. I discussed recommendation for irrigation and debridement. The patient was agreeable. Consents obtained. PAST MEDICAL HISTORY: Hypertension, hyperlipidemia, insulin-dependent diabetes. PAST SURGICAL HISTORY: Left hand A1 devin trigger finger release. DAILY MEDICATIONS: 1. Atorvastatin. 2. Baclofen. 3. Celexa. 4. Lantus insulin. 5. Forxiga. 6. Metoprolol. 7. Percocet. ALLERGIES: Ceclor and sulfa. SOCIAL HISTORY: She does not smoke tobacco. PHYSICAL EVALUATION: Of left hand, there is some erythema diffusely about the previous incision site. Both sutures are removed. There is no obvious purulent drainage. She is able to move her finger with no pain. There is no evidence for a septic tenosynovitis present. IMPRESSION: 1. Left hand palmar aspect infection. 2. History of recent left ring finger A1 devin release. PLAN: Irrigation and debridement, left hand abscess. MMODL / IJN: [id number] /
[~2024-10-19 08:24] MED LIST changes: -DEXAMETHASONE SOD PHOSPHATE 4 MG/ML 1 ML VIAL IV ONE; -LIDOCAINE 1% (10MG/ML) FOR IV START INTRADERMA PRN; +MIDAZOLAM 2 MG/2 ML VIAL IV PRN; -droPERidol 2.5 MG/ML VIAL IVP ONE
[2024-10-19 09:14] LABS: Glucose,Whole Blood 168 mg/dL (70-110)
[2024-10-19] MEDS: LACTATED RINGERS 1,000 ML IV SCH (09:14)
[2024-10-19] MEDS: ONDANSETRON 4 MG/2 ML VIAL IVP ONE (09:14)
[2024-10-19] MEDS: DEXAMETHASONE SOD PHOSPHATE 4 MG/ML 1 ML VIAL IV ONE (09:14)
[2024-10-19] MEDS: IV FLUID CONTINUATION 1,000 ML IV ONE (09:15)
[2024-10-19] MEDS ORDERED: MIDAZOLAM 2 MG/2 ML VIAL ONE (09:32)
[2024-10-19] MEDS ORDERED: SUCCINYLCHOLINE CHLORIDE 200 MG/10 ML VIAL IV ONE (09:32)
[2024-10-19] MEDS ORDERED: LIDOCAINE 1% INJ 10MG/ML (20 ML MDV) ONE (09:32)
[2024-10-19] MEDS ORDERED: fentaNYL (PF) 50 MCG/ML 2 ML AMP ONE (09:32)
[2024-10-19] MEDS ORDERED: PROPOFOL 10 MG/ML 20 ML VIAL IV ONE (09:32)
[2024-10-19] MEDS: ceFAZolin 2 GM in DEXTROSE 5% IN WATER 50 ML IVPB PRN (09:37)
[2024-10-19] MEDS: BUPIVACAINE (PF) 0.25% 30 ML VIAL SQ ONE (10:01)
[2024-10-19 10:23] VITALS: RESP 16; TEMP 97.4
--- NOTE | 2024-10-19 10:25 | P.OP ---
Date of Procedure: 10/19/24 Preoperative Diagnosis: Left hand palmar abscess Postoperative Diagnosis: Left hand palmar abscess Procedure(s) Performed: Incision with irrigation and debridement left hand palmar abscess Anesthesia: BRIDGETT, local Surgeon: Ky Oliver Environmental Programs Manager #1: Miguel Angel Hawley Estimated Blood Loss (ml): 3 Pathology: none sent Condition: stable Disposition: PACU Indications for Procedure: 68-year-old patient seen with the left hand palmar abscess with history of recent A1 devin release. I discussed incision with irrigation and debridement. She was agreeable. Consent was obtained. Operative Findings: See description of procedure Description of Procedure: Patient was taken to the operative suite. She underwent a general anesthetic by the department of anesthesia. She received preoperative IV antibiotics. Well- padded tourniquet placed left proximal upper extremity. Left upper extremity was prepped and draped in the normal sterile orthopedic fashion. We elevated the extremity and insufflated the tourniquet to 250. I now evaluated the area. There was very mild purulent drainage which was evacuated. The skin margins appeared somewhat necrotic. I now performed an excisional debridement of the skin margins and subcutaneous tissue utilizing a 15 blade/scalpel getting down to stable appearing subcutaneous tissues. There was no exposed tendon. All the remaining tissue appeared stable. I now irrigated the wound out with 1000 cc of normal saline irrigant. I explored the wound and again noted no residual abnormal looking tissue and it was again no exposed tendon. The skin margins were loosely approximated with 2 nylon sutures. I infiltrated the area with about 10 cc of quarter percent plain Marcaine to provide postoperative analgesia. Sterile dressings were applied. I now released the tourniquet with immediate capillary refill of all digits. Sterile Webril followed by Coban dressing were applied. Patient was awakened, transferred to a bed and recovery in stable condition. Abraham STORM assisted in all aspects of this procedure.
[2024-10-19 11:12] VITALS: BP 158/77; PULSE 67
== END 2024-10-19 11:31 | disposition home or self-care (01) ==
LOC: OR 08:24
PROVIDERS: ATTEND Orthopaedic Surgery
DX: L02.512 Cutaneous abscess of left hand (principal); K21.9 Gastro-esophageal reflux disease without esophagitis; I25.10 Atherosclerotic heart disease of native coronary artery without angina pectoris; I25.2 Old myocardial infarction; J45.909 Unspecified asthma, uncomplicated; I10 Essential (primary) hypertension; E78.5 Hyperlipidemia, unspecified; M19.90 Unspecified osteoarthritis, unspecified site; M54.2 Cervicalgia; E11.9 Type 2 diabetes mellitus without complications; Z88.1 Allergy status to other antibiotic agents; Z88.2 Allergy status to sulfonamides; Z79.4 Long term (current) use of insulin; Z79.02 Long term (current) use of antithrombotics/antiplatelets; Z79.899 Other long term (current) drug therapy
CPT/HCPCS: 11042; J2250; J0330; J1100; J0690; J2405; J2003; J3010; J2704; J0665